=== PATIENT | female | born 1975 | race Caucasian/White ===

== ENCOUNTER → 2019-03-02 16:16 | Outpatient (CLI) | payer BC, SELFPAY ==
--- NOTE | 2019-03-02 | XR_ITS ---
PROCEDURE: XR KUB CLINICAL INDICATION: Bloody stool, abdominal cramping COMPARISON: ABDPELWO CT abdomen pelvis wo con from 08/17/2018 FINDINGS: Nonspecific bowel gas pattern. No evidence of intestinal obstruction. There are multiple small punctate foci of increased density within the ascending colon and cecum consistent with ingested material. This could be due to ingested medications or other ingested radiopaque material. Please correlate with clinical history. IMPRESSION: Multiple small hyperdensities in the ascending colon consistent with ingested material otherwise negative Dictated by: Pablo Lim MD 03/02/2019 17:14 Electronically signed by Pablo Lim MD in [place] 03/02/2019 17:14
== END ==
PROVIDERS: PCP Nurse Practitioner Family; Visit Provider Nurse Practitioner Family
DX: R10.30 Lower abdominal pain, unspecified (principal); K62.5 Hemorrhage of anus and rectum
CPT/HCPCS: 74018

== ENCOUNTER → 2019-05-15 14:06 | Outpatient (POV) | payer BC, SELFPAY | PROVIDERS: PCP Surgery; Visit Provider Nurse Practitioner Family | DX: Z00.00 Encounter for general adult medical examination without abnormal findings (principal) ==

== ENCOUNTER 2019-10-09 07:06 | Emergency (ER) | payer BC, SELFPAY ==
[2019-10-09 07:18] VITALS: BP 119/69; PULSE 62; RESP 16; TEMP 36.6; O2SAT 98; BMI 34.0
[2019-10-09 07:32] LABS: Appearance,Urine CLOUDY (Clear); Bilirubin,Urine Negative (Negative); Blood, Urine 3+ (Negative); Color,Urine DK YELLOW (Yellow); Glucose,Urine (UA) Negative (Negative); Ketones,Urine Negative (Negative); Leukocyte Esterase,Urine 2+ (Negative); Microscopic, Urine URINE MICROSCOPIC (MICROSCOPIC); Nitrate,Urine POSITIVE (Negative); Protein,Urine 2+ (Negative); Specific Gravity, Urine >= 1.030 (1.005-1.030)
[2019-10-09 07:41] LABS: Bacteria,Urine 3+ /lpf; RBC,Urine 20-50 #/hpf (0-3); WBC,Urine TNTC #/hpf (0-3)
--- NOTE | 2019-10-09 07:45 | HMH.EDUROGF ---
ED Disposition Clinical Impression: UTI (urinary tract infection) Qualifiers: Urinary tract infection type: site unspecified Hematuria presence: without hematuria Qualified Code(s): N39.0 - Urinary tract infection, site not specified Disposition: Home, Self-Care Condition on Discharge: Good Instructions: DI for Urinary Tract Infection (UTI) Additional Instructions: fluids and call pcp for follow up and culture results Prescriptions: levoFLOXacin [Levaquin 500mg tab] 500 mg PO DAILY #7 tab Transmission Status: Pending to [facility] Ketorolac Tromethamine [Toradol 10mg tablet] 10 mg PO Q6H 5 Days #10 tab Transmission Status: Pending to [facility] Referrals: Chris Enriquez MD [Primary Care Provider] - - Critical Care Critical Care Time: No Attestation: On 10/09/19, the high probability of a clinically significant, sudden or life threatening deterioration of the following system(s) required my full and direct attention, intervention and personal management. The time I documented below is in addition to time spent performing reported procedures but includes the following listed in this critical care notation. Medical Decision Making - Medical Records Medical records reviewed: Yes: I reviewed the patient's medical records. - Jag Inquiry Pt receiving controlled substance: No Vital Signs: 10/09/19 07:18 Temperature 98 F Temperature Source Oral Pulse Rate [Left Radial] 62 Respiratory Rate 16 Blood Pressure [Right Arm] 119/69 Blood Pressure Mean [Right Arm] 85 Blood Pressure Position [Right Arm] Sitting 02 Sat by Pulse Oximetry 98 Oxygen Delivery Method Room Air - Lab Data Lab results reviewed: Yes: I reviewed the patient's lab results. Lab Results 10/09/19 07:10: Urine Color Dk yellow, Urine Appearance Cloudy, Urine pH 6.0, Ur Specific [place] >= 1.030, Urine Protein 2+, Urine Glucose (UA) Negative, Urine Ketones Negative, Urine Blood 3+, Urine Nitrate Positive, Urine Bilirubin Negative, Urine Urobilinogen 1.0, Ur Leukocyte Esterase 2+ A, Urine RBC 20-50, Urine WBC Tntc, Ur Squamous Epith Cells 10-20, Urine Bacteria 3+ Orders (Tests/Meds): ORDERS Category Date Time Status CBC w/Auto Diff [Complete Blood Count Auto Diff] Stat Lab 10/09/19 07:30 Received CMP [Comprehensive Metabolic Panel] Stat Lab 10/09/19 07:30 Received Urine Culture Stat Micro 10/09/19 07:10 Received Female Urogenital HPI - General Chief complaint: Abdominal Pain Stated complaint: stomach pain, burning sensation Time Seen by Provider: 10/09/19 07:35 Mode of Arrival: Ambulatory Source of Information: Patient, Medical Record Limitations: No Limitations Description of Symptoms (Recalled from ER Triage Doc. by RN): to ed per pvt car with c/o burning with urination, lower abd pain +nausea starting wednesday. pt states she has been treating herself with azo and some left over amox. has taken motrin at 4:30 this am - History of Present Illness HPI Narrative: uti sx with freq and dysuria over the last few days - has no gross hematuria - no fever or vomiting - had used amox at home - MD Complaint: dysuria Onset (ago): day(s) Location: suprapubic Severity: moderate Urinary Symptoms: dysuria, frequency, foul smelling urine : no Associated symptoms: denies other symptoms - Related Data Previous Rx's Medication Instructions Recorded Ketorolac Tromethamine [Toradol 10 mg PO Q6H 5 Days #10 tab 10/09/19 10mg tablet] levoFLOXacin [Levaquin 500mg 500 mg PO DAILY #7 tab 10/09/19 tab] Allergies Allergy/AdvReac Type Severity Reaction Status Date / Time No Known Allergies Allergy Verified 06/30/19 10:17 [facility] History - Hepatitis A Screen Drug use history?: No High risk sexual behaviors?: No History of sexually transmitted infection?: No Currently employed?: No Childcare worker?: No Do you have indoor plumbing?: Yes Do you have electricity?: Yes At
[2019-10-09 08:03] VITALS: BP 119/69; PULSE 62; RESP 16; TEMP 36.6; O2SAT 98
== END 2019-10-09 08:04 | disposition home or self-care (01) ==
PROVIDERS: Emergency Provider Emergency Medicine; PCP Family Medicine
DX: N30.00 Acute cystitis without hematuria (principal); F17.210 Nicotine dependence, cigarettes, uncomplicated
CPT/HCPCS: 81001; 87086; 87088; 87186; 96372; 99282

== ENCOUNTER → 2020-02-07 15:19 | Outpatient (CLI) | payer BC, SELFPAY ==
--- NOTE | 2020-02-07 15:22 | XR_ITS ---
PROCEDURE: XR FOOT LT MIN 3V CLINICAL INDICATION: L FOOT PAIN COMPARISON: No exams were available for comparison FINDINGS: No fracture or dislocation. No lytic or blastic change. There is normal mineralization. The joint spaces are well-preserved. No significant degenerative/arthritic changes. No erosive changes evident. Other findings:There is a small calcaneal spur and there is an enthesophyte at the Achilles insertion. Small osteophyte is present at the anterior distal tibia IMPRESSION: No acute findings. Dictated by: Pablo Lim MD 02/07/2020 15:49 Pablo Lim MD in [place] 02/07/2020 15:49
== END ==
PROVIDERS: PCP Nurse Practitioner Family; Visit Provider Nurse Practitioner Family
DX: M79.672 Pain in left foot (principal)
CPT/HCPCS: 73630

== ENCOUNTER 2020-06-25 07:24 | Emergency (ER) | payer BC, SELFPAY ==
[2020-06-25 07:24] VITALS: BP 130/71; PULSE 84; RESP 15; TEMP 37; O2SAT 97; BMI 33.9
--- NOTE | 2020-06-25 07:25 | ECG_ITS ---
APPROVED REPORT Exam: Resting ECG HR:77 bpm ECG Measurements Heart Rate 77 AXES ME 142 P 50 QRSd 96 QRS 51 QT 384 T 54 QTc 434 Conclusion Normal sinus rhythm Low voltage QRS Borderline ECG Electronically signed by : Chris Logan, 06/25/2020 19:57:13
--- NOTE | 2020-06-25 07:33 | XR_ITS ---
PROCEDURE: XR CHEST PORTABLE CLINICAL HISTORY: chest pain COMPARISON: CR CXR2V XR chest 2V from 12/24/2017 FINDINGS: The cardiomediastinal silhouette and pulmonary vascularity are within normal limits. The lungs are clear without infiltrates, suspicious nodules, or pleural effusions. No acute bony abnormalities. IMPRESSION: No acute findings. Dictated by: Pablo Lim MD 06/25/2020 09:17 Pablo Lim MD in [place] 06/25/2020 09:17
--- NOTE | 2020-06-25 07:35 | HMH.EDGENADL ---
ED Disposition Clinical Impression: Atypical chest pain Disposition: Home, Self-Care Condition on Discharge: Fair Instructions: DI for Atypical Chest Pain Prescriptions: Ibuprofen [Ibuprofen 600mg Tablet] 600 mg PO Q8 #30 tab Transmission Status: Pending to [facility] Referrals: Chris Enriquez MD [Primary Care Provider] - Issa Del Toro MD [Staff Physician] - Time of Disposition: 10:31 - Critical Care Critical Care Time: No Attestation: On , the high probability of a clinically significant, sudden or life threatening deterioration of the following system(s) required my full and direct attention, intervention and personal management. The time I documented below is in addition to time spent performing reported procedures but includes the following listed in this critical care notation. Medical Decision Making - Medical Records Medical records reviewed: Yes: I reviewed the patient's medical records. - Jag Inquiry Pt receiving controlled substance: No Vital Signs: 06/25/20 07:24 06/25/20 07:55 06/25/20 08:59 Temperature 98.6 F Temperature Source Oral Pulse Rate [Left Radial] 84 60 57 L Respiratory Rate 15 Blood Pressure [Right Arm] 130/71 105/68 L 100/60 L Blood Pressure Mean [Right Arm] 90 80 73 Blood Pressure Source [Right Arm] Automatic Cuff Automatic Cuff Automatic Cuff Blood Pressure Position [Right Arm] Sitting Sitting Sitting 02 Sat by Pulse Oximetry 97 96 97 Oxygen Delivery Method Room Air Room Air Room Air 06/25/20 09:37 Temperature Temperature Source Pulse Rate [Left Radial] 54 L Respiratory Rate Blood Pressure [Right Arm] 102/61 L Blood Pressure Mean [Right Arm] 74 Blood Pressure Source [Right Arm] Automatic Cuff Blood Pressure Position [Right Arm] Sitting 02 Sat by Pulse Oximetry 97 Oxygen Delivery Method Room Air - Lab Data Lab Results 06/25/20 07:40: WBC 6.0, RBC 4.52, Hgb 13.6, Hct 41.0, MCV 90.7, MCH 30.1, MCHC 33.2, RDW 13.9, Plt Count 320, MPV 7.4, Neut % (Auto) 55.3, Lymph % (Auto) 34.3, [place] % (Auto) 7.2, Eos % (Auto) 2.7, Baso % (Auto) 0.4, Neut # (Auto) 3.3, Lymph # (Auto) 2.1, [place] # (Auto) 0.4, Eos # (Auto) 0.2, Baso # (Auto) 0.0 06/25/20 07:40: Sodium 139, Potassium 3.9, Chloride 102, Carbon Dioxide 28, Anion Gap 12.9, BUN 15, Creatinine 0.70, Estimated Creat Clear 153, Estimated GFR 90, Est GFR ( Amer) 109, Glucose 103 H, Calcium 9.4, Troponin I < 0.01 06/25/20 07:40: D-Dimer 0.81 06/25/20 07:40: SARS-CoV-2 IgG Ab (Rapid) Negative, SARS-CoV-2 IgM Ab (Rapid) Negative 06/25/20 10:35: Troponin I < 0.01 Result diagrams: 06/25/20 07:40 06/25/20 07:40 Orders (Tests/Meds): ED MEDICATIONS Discontinued Medications Generic Name Dose Route Start Last Admin Trade Name Freq PRN Reason Stop Dose Admin Aspirin 324 mg 06/25/20 07:33 06/25/20 07:46 Aspirin 81mg Chewable Tablet PO 06/25/20 07:34 324 mg ONCE ONE Administration Iopamidol 75 ml 06/25/20 09:51 06/25/20 09:55 Iopamidol-370 (76%);100ml Bottle IV 06/25/20 09:52 75 ml ONCE ONE Administration Sodium Chloride 10 ml 06/25/20 09:51 06/25/20 09:55 Sodium Chloride 0.9% 10ml Syr (Rad Only) IV 06/25/20 09:52 10 ml ONCE ONE Administration ORDERS Category Date Time Status Troponin I Q3H Lab 06/25/20 13:45 Ordered EKG Request [ECG Request by /Rosie] Stat Y 06/25/20 07:33 Ordered - ECG Data Tracing #1 Sinus rhythm with ventricular rate of 77 bpm. QRS 96, QTc 434. ST segment flattening in V1, V2. No ST segment elevations. No reciprocal changes. - ANNA Score for Non-Stemi Age of Patient: 40-49 years old Heart Rate: 70-89 bpm Systolic Blood Pressure: 120-139 mmhg Serum Creatinine: 0.80-1.19 mg/dl CHF [place] Class: I-No CHF Other Risk Factors: None Non-Stemi Risk Score: 75 Medical Decision Narrative: 44-year-old female presenting to the emergency department with chest pain. Patient clinically stable on arrival. Vital si
--- NOTE | 2020-06-25 07:44 | PC.NURSE ---
rad at BS
[2020-06-25 07:55] VITALS: BP 105/68; PULSE 60; O2SAT 96
[2020-06-25 08:06] LABS: Basophils % 0.4 % (0.1-2.0); Eosinophils # 0.2 K/mm3 (0.0-0.4); Eosinophils % 2.7 % (0.1-12.0); Hemoglobin 13.6 g/dL (12.2-16.2); Lymphocytes # 2.1 K/mm3 (0.7-4.5); Lymphocytes % 34.3 % (10-50); Mean Corpuscular HGB Conc 33.2 g/dL (31.8-35.4); Mean Corpuscular Hemoglobin 30.1 pg (27.0-31.2); Mean Corpuscular Volume 90.7 fl (81-99); Mean Platelet Volume 7.4 fl (7.4-10.4); Monocytes # 0.4 K/mm3 (0.1-1.0); Monocytes % 7.2 % (1.7-9.3); Neutrophils # 3.3 K/mm3 (1.8-7.8); Neutrophils % 55.3 % (37.0-80.0); Platelet Count 320 K/mm3 (142-424); Red Blood Count 4.52 M/mm3 (4.20-5.40); Red Cell Distribution Width 13.9 % (11.5-17.5)
[2020-06-25 08:30] LABS: Coronavirus 19 IgG Antibody Negative (Negative); Coronavirus 19 IgM Antibody Negative (Negative)
[2020-06-25 08:36] LABS: Anion Gap 12.9 mEq/L (5-15); Blood Urea Nitrogen 15 mg/dl (7-17); Calcium 9.4 mg/dl (8.4-10.2); Carbon Dioxide 28 mmol/L (22.0-30.0); Chloride 102 mmol/L (98-107); Creatinine Clearance Estimated 153 mL/min (50-200); Estimated Glomerular Filt Rate 90 ml/min (>60); GFR (African American) 109 ML/MIN (>60); Glucose 103 mg/dl (74-100); Potassium 3.9 mmoL/L (3.5-5.1); Sodium 139 mmol/L (136-145)
[2020-06-25 08:41] LABS: D-Dimer 0.81 ug/mL (0.15-8.0)
[2020-06-25 08:52] LABS: Troponin I < 0.01 ng/ml (0.00-0.034)
[2020-06-25 08:59] VITALS: BP 100/60; PULSE 57; O2SAT 97
--- NOTE | 2020-06-25 09:33 | CT_ITS ---
PROCEDURE: CT CHEST W CON CLINCAL INDICATION: chest pain, into back, aorta COMPARISON: CR XR CHEST PORTABLE from 06/25/2020 TECHNIQUE: IV Contrast: 75ml Isovue 370 Axial images obtained with sagittal and coronal reformats. All CT scans at the facility use one or more dose reduction, viz: automated exposure control, ma/kV adjustment per patient size (including targeted exams where dose is matched to indication, i.e. head), or iterative reconstruction technique. FINDINGS: Motion artifact somewhat obscures fine detail. There is no evidence of aortic aneurysm or dissection. No central pulmonary embolus apparent. No mediastinal or hilar mass or adenopathy. No lobar consolidation or collapse. No effusions or infiltrates. There are degenerative changes in the thoracic spine. IMPRESSION: No acute finding Dictated by: Pablo Lim MD 06/25/2020 10:13 Pablo Lim MD in [place] 06/25/2020 10:13
[2020-06-25 09:37] VITALS: BP 102/61; PULSE 54; O2SAT 97
[2020-06-25 11:09] LABS: Troponin I < 0.01 ng/ml (0.00-0.034)
[2020-06-25 11:24] VITALS: BP 105/57; PULSE 56; RESP 17; TEMP 37; O2SAT 99
== END 2020-06-25 11:25 | disposition home or self-care (01) ==
PROVIDERS: Emergency Provider Emergency Medicine; PCP Family Medicine
DX: R07.89 Other chest pain (principal); F41.8 Other specified anxiety disorders; J45.909 Unspecified asthma, uncomplicated; Z01.84 Encounter for antibody response examination; F17.210 Nicotine dependence, cigarettes, uncomplicated; Z79.899 Other long term (current) drug therapy
CPT/HCPCS: 71045; 71260; 80048; 84484; 85025; 85378; 86328; 93005; 99283; Q9967

== ENCOUNTER 2020-10-03 14:20 | Emergency (ER) | payer BC, SELFPAY ==
--- NOTE | 2020-10-03 14:58 | PC.NURSE ---
PATIENT FILLED OUT PAPERWORK AND THEN STEPPED OUT AND JUST RETURNED TO BE SEEN
[2020-10-03 15:06] VITALS: RESP 14; TEMP 37.1; O2SAT 98; BMI 32.9
[2020-10-03 15:13] LABS: Apearance,Urine Clear (Clear); Bilirubin,Urine Negative (Negative); Blood, Urine Trace (Negative); Color,Urine Amber (Yellow); Glucose,Urine (UA) Negative (Negative); Ketones,Urine Negative (Negative); PH,Urine 5.5 (5.0-8.5); Protein,Urine Negative (Negative); Specific Gravity, Urine >= 1.030 (1.005-1.030)
[2020-10-03 15:14] LABS: UTC Leukocyte Esterase,Urine Negative (Negative); UTC Nitrate,Urine Negative (Negative); Urobilinogen,Urine 2 EU/dl (0.2)
--- NOTE | 2020-10-03 15:21 | HMH.EDUTC ---
[facility] Disposition Clinical Impression: Perforated right tympanic membrane on examination, Dysuria Right middle ear infection Qualifiers: Otitis media type: unspecified Qualified Code(s): H66.91 - Otitis media, unspecified, right ear Disposition: Home, Self-Care Condition on Discharge: Good Instructions: Middle Ear Infection, DI for Dysuria -- Adult Additional Instructions: Drink plenty of fluids. Take tylenol or ibuprofen for pain or fever. Take the medications as directed. Follow up with your regular doctor. GO TO THE ER FOR ANY WORSENING SYMPTOMS We sent a urine culture to the lab to verify if you have a UTI or not. This test takes 3 days, so if you are still having the urinary symptoms in 3 days f/u with your doctor to have the results checked. Prescriptions: Amoxicillin/Potassium Clav [Augmentin 875-125 Tablet] 1 tab PO Q12H 10 Days #20 tab Transmission Status: Received by [facility] Ciprofloxacin HCl/Dexameth [Cipro 0.3%-Dex 0.1% Otic Susp 7.5mL] 2 drops EAR-LEFT BID 7 Days #1 bottle Transmission Status: [email or web address] predniSONE [Prednisone 20mg Tab] 20 mg PO BID 4 Days #8 tab Transmission Status: Received by [facility] Referrals: Chris Enriquez MD [Primary Care Provider] - Forms: Work/School Release Time of Disposition: 15:27 Medical Decision Making - Medical Records Medical records reviewed: No: I reviewed the patient's medical records. - Jag Inquiry Pt receiving controlled substance: No Vital Signs: 10/03/20 15:06 10/03/20 15:31 Temperature 98.7 F 98.0 F Temperature Source Oral Oral Pulse Rate 60 Respiratory Rate 14 16 Blood Pressure 107/54 L 02 Sat by Pulse Oximetry 98 Oxygen Delivery Method Room Air Room Air - Lab Data Lab Results 10/03/20 15:12: Urine Color Sharlene, Urine Appearance Clear, Urine pH 5.5, Ur Specific [place] >= 1.030, Urine Protein Negative, Urine Glucose (UA) Negative, Urine Ketones Negative, Urine Blood Trace, Urine Nitrate Negative, Urine Bilirubin Negative, Urine Urobilinogen 2, Ur Leukocyte Esterase Negative Orders (Tests/Meds): ORDERS Category Date Time Status Urine Culture Routine Micro 10/03/20 15:30 Received [facility] HPI - General Stated complaint: Drainage; right ear draining;UTI Time Seen by Provider: 10/03/20 15:15 Mode of Arrival: Ambulatory Source of Information: Patient Limitations: No Limitations Description of Symptoms (Recalled from Triage Doc. by RN): earache, sinus pressure, headache, frequent urination HEENT Symptoms (Recalled from RN notes): Yes Resp Symptoms (Recalled from RN notes): No Skin Symptoms (Recalled from RN notes): No MS Symptoms (Recalled from RN notes): No Functional Status (Recalled from RN notes): na - History of Present Illness Provider Complaint: She c/o right ear pain for the past 3 days. She has a history of getting an ear infection every spring. She also c/o urinary frequency and low back pain. - Related Data Home Medications Medication Instructions Recorded Confirmed estradiol 1 mg tablet 1 mg PO DAILY tab 03/19/20 09/05/20 progesterone micronized 200 mg 200 mg PO DAILY cap 03/19/20 09/05/20 capsule sertraline 50 mg tablet 50 mg PO DAILY tab 03/19/20 09/05/20 Previous Rx's Medication Instructions Recorded Ibuprofen [Ibuprofen 600mg 600 mg PO Q8 #30 tab 06/25/20 Tablet] Amoxicillin/Potassium Clav 1 tab PO Q12H 10 Days #20 tab 10/03/20 [Augmentin 875-125 Tablet] Ciprofloxacin HCl/Dexameth [Cipro 2 drops EAR-LEFT BID 7 Days #1 10/03/20 0.3%-Dex 0.1% Otic Susp 7.5mL] bottle predniSONE [Prednisone 20mg 20 mg PO BID 4 Days #8 tab 10/03/20 Tab] Allergies Allergy/AdvReac Type Severity Reaction Status Date / Time No Known Allergies Allergy Verified 09/05/20 14:30 - Worker's Comp Is this a Worker's Comp case?: No [facility] History - Hepatitis A Screen Drug use history?: No High risk sexual behaviors?
[2020-10-03 15:31] VITALS: BP 107/54; PULSE 60; RESP 16; TEMP 36.7; O2SAT 98
== END 2020-10-03 15:36 | disposition home or self-care (01) ==
PROVIDERS: Emergency Provider Nurse Practitioner Family; PCP Family Medicine
DX: H72.91 Unspecified perforation of tympanic membrane, right ear (principal); H66.91 Otitis media, unspecified, right ear; N39.0 Urinary tract infection, site not specified; F41.9 Anxiety disorder, unspecified; J45.909 Unspecified asthma, uncomplicated; F17.210 Nicotine dependence, cigarettes, uncomplicated
CPT/HCPCS: 81003; 87086; 99202; G0463

== ENCOUNTER 2021-03-21 20:18 | Emergency (ER) | payer BC, SELFPAY ==
--- NOTE | 2021-03-21 20:12 | ECG_ITS ---
APPROVED REPORT Exam: Resting ECG HR:112 bpm ECG Measurements Heart Rate 112 AXES [place] 144 P 54 QRSd 90 QRS 53 QT 358 T 36 QTc 488 Conclusion Sinus tachycardia Otherwise normal ECG Electronically signed by : Chris Logan MD 03/22/2021 12:47:21
[2021-03-21 20:18] VITALS: BP 132/82; PULSE 101; RESP 25; TEMP 36.6; O2SAT 100; BMI 33.9
--- NOTE | 2021-03-21 20:38 | XR_ITS ---
PROCEDURE INFORMATION: Exam: XR Chest Exam date and time: 03/21/21 08:38 PM Age: 45 years old Clinical indication: Shortness of breath; Additional info: oRme SOSukhi TECHNIQUE: Imaging protocol: XR of the chest. Views: 2 views. COMPARISON: CT CHEST W CON 06/25/20 09:49 AM FINDINGS: Lungs: Patchy left lower lobe infiltrate. Pleural spaces: Unremarkable. No pleural effusion. No pneumothorax. Heart/Mediastinum: Unremarkable. No cardiomegaly. Bones/joints: Unremarkable. IMPRESSION: Patchy left lower lobe infiltrate.
--- NOTE | 2021-03-21 20:42 | HMH.EDCP ---
ED Disposition Clinical Impression: Chest pain Qualifiers: Chest pain type: unspecified Qualified Code(s): R07.9 - Chest pain, unspecified Disposition: Home, Self-Care Condition on Discharge: Good Instructions: DI for Atypical Chest Pain Additional Instructions: see pcp and card for follow up Referrals: Chris Enriquez MD [Primary Care Provider] - - Critical Care Critical Care Time: No Attestation: On 03/21/21, the high probability of a clinically significant, sudden or life threatening deterioration of the following system(s) required my full and direct attention, intervention and personal management. The time I documented below is in addition to time spent performing reported procedures but includes the following listed in this critical care notation. Medical Decision Making - Medical Records Medical records reviewed: Yes: I reviewed the patient's medical records. - Jag Inquiry Pt receiving controlled substance: No Vital Signs: 03/21/21 20:18 Temperature 97.9 F Temperature Source Oral Pulse Rate [Right] 101 H Respiratory Rate 25 H Blood Pressure [Right Arm] 132/82 Blood Pressure Mean [Right Arm] 98 Blood Pressure Source [Right Arm] Automatic Cuff 02 Sat by Pulse Oximetry 100 Oxygen Delivery Method Room Air - Lab Data Lab results reviewed: Yes: I reviewed the patient's lab results. Lab Results 03/21/21 20:30: WBC 7.2, RBC 4.16 L, Hgb 13.0, Hct 38.6, MCV 92.8, MCH 31.1, MCHC 33.5, RDW 13.1, Plt Count 353, MPV 8.6, Neut % (Auto) 65.4, Lymph % (Auto) 27.7, [place] % (Auto) 5.2, Eos % (Auto) 0.8, Baso % (Auto) 0.7, Neut # (Auto) 4.7, Lymph # (Auto) 2.0, [place] # (Auto) 0.4, Eos # (Auto) 0.1, Baso # (Auto) 0.1 03/21/21 20:30: Sodium 140, Potassium 3.6, Chloride 109 H, Carbon Dioxide 23, Anion Gap 11.6, BUN 12, Creatinine 0.70, Estimated Creat Clear 151, Estimated GFR 90, Est GFR ( Amer) 109, Glucose 108 H, Calcium 9.3, Magnesium 2.1, Total Bilirubin 0.2, Direct Bilirubin 0.0, Conjugated Bilirubin 0.0, Indirect Bilirubin 0.2, Unconjugated Bilirubin 0.2, AST 25, ALT 22, Alkaline Phosphatase 53, Troponin I < 0.01, C-Reactive Protein 1.6, Total Protein 7.1, Albumin 4.3 03/21/21 20:30: ESR 17 03/21/21 20:30: Procalcitonin < 0.030 03/21/21 20:41: SARS-CoV-2 (PCR) Not detected, Influenza A Untype (PCR) Not detected, Influenza Type B (PCR) Not detected 03/21/21 21:29: Urine Color Yellow, Urine Appearance Clear, Urine pH 6.5, Ur Specific [place] 1.020, Urine Protein Negative, Urine Glucose (UA) Negative, Urine Ketones Negative, Urine Blood Negative, Urine Nitrate Negative, Urine Bilirubin Negative, Urine Urobilinogen 0.2, Ur Leukocyte Esterase Negative, Urine WBC 3-5, Ur Squamous Epith Cells 5-10, Urine Mucus Trace 03/21/21 22:39: Troponin I < 0.01 Result diagrams: 03/21/21 20:30 03/21/21 20:30 Orders (Tests/Meds): ED MEDICATIONS Generic Name Dose Route Start Last Admin Trade Name Freq PRN Reason Stop Dose Admin Sodium Chloride 8 ml 03/21/21 20:41 Sodium Chloride 0.9% 10ml Vial IV 04/20/21 20:40 NEEDED PRN dilute pepcid Discontinued Medications Generic Name Dose Route Start Last Admin Trade Name Freq PRN Reason Stop Dose Admin Famotidine 20 mg 03/21/21 20:41 03/21/21 20:58 Famotidine 20mg/2ml Vial IV 03/21/21 20:42 20 mg ONCE ONE Administration Sodium Chloride 1,000 mls @ 999 mls/hr 03/21/21 20:45 03/21/21 20:59 Sod Chlor 0.9% 1000ml Bag IV 03/21/21 21:45 999 mls/hr .Q1H1M NAV Administration Iopamidol 70 ml 03/21/21 23:17 03/21/21 23:18 Iopamidol-370 (76%);100ml Bottle IV 03/21/21 23:18 70 ml ONCE ONE Administration Ketorolac Tromethamine 30 mg 03/21/21 20:41 03/21/21 20:58 Ketorolac 30mg/Ml Vial IV 03/21/21 20:42 30 mg ONCE ONE Administration Metoclopramide HCl 10 mg 03/21/21 20:41 03/21/21 20:58 Metoclopramide Hcl 10mg/2ml Vial IVP 03/21/21 20:42 10 mg ONCE ONE Administration Ondansetron HCl 4 mg 03/21/21 20:41 1
[2021-03-21 20:54] LABS: Basophils # 0.1 K/mm3 (0-0.2); Basophils % 0.7 % (0.1-2.0); Eosinophils # 0.1 K/mm3 (0.0-0.4); Eosinophils % 0.8 % (0.1-12.0); Hematocrit 38.6 % (37.0-47.0); Lymphocytes % 27.7 % (10-50); Mean Corpuscular HGB Conc 33.5 g/dL (31.8-35.4); Mean Corpuscular Hemoglobin 31.1 pg (27.0-31.2); Mean Corpuscular Volume 92.8 fl (81-99); Mean Platelet Volume 8.6 fl (7.4-10.4); Monocytes # 0.4 K/mm3 (0.1-1.0); Monocytes % 5.2 % (1.7-9.3); Neutrophils # 4.7 K/mm3 (1.8-7.8); Neutrophils % 65.4 % (37.0-80.0); Platelet Count 353 K/mm3 (142-424); Red Blood Count 4.16 M/mm3 (4.20-5.40); Red Cell Distribution Width 13.1 % (11.5-17.5); White Blood Count 7.2 K/mm3 (4.8-10.8)
[2021-03-21 20:59] LABS: Coronavirus 19, PCR Not Detected (NotDetected); Influenza A, PCR Not Detected (NotDetected); Influenza B, PCR Not Detected (NotDetected)
[2021-03-21 20:59] LABS: Alanine Aminotransferase 22 U/L (12-78); Albumin Level 4.3 g/dl (3.5-5.0); Alkaline Phosphatase 53 U/L (38-126); Anion Gap 11.6 mEq/L (5-15); Aspartate Amino Transferase 25 U/L (14-36); Bilirubin,Indirect 0.2 mg/dL (0.0-0.9); Bilirubin,Total 0.2 mg/dl (0.2-1.3); Bilirubin,Unconjugated 0.2 mg/dL (0.0-1.1); Blood Urea Nitrogen 12 mg/dl (7-17); Calcium 9.3 mg/dl (8.4-10.2); Carbon Dioxide 23 mmol/L (22.0-30.0); Chloride 109 mmol/L (98-107); Creatinine Clearance Estimated 151 mL/min (50-200); Estimated Glomerular Filt Rate 90 ml/min (>60); GFR (African American) 109 ML/MIN (>60); Glucose 108 mg/dl (74-100); Magnesium 2.1 mg/dl (1.6-2.3); Potassium 3.6 mmoL/L (3.5-5.1); Sodium 140 mmol/L (136-145); Total Protein,Serum 7.1 g/dl (6.3-8.2)
[2021-03-21 21:04] LABS: C-Reactive Protein 1.6 mg/L (0-4)
[2021-03-21 21:16] LABS: Troponin I < 0.01 ng/ml (0.00-0.034)
[2021-03-21 21:22] LABS: Procalcitonin < 0.030 ng/mL (0.0-2.0)
[2021-03-21 21:34] LABS: Microscopic, Urine URINE MICROSCOPIC (MICROSCOPIC)
[2021-03-21 21:49] LABS: Erythrocyte Sedimentation Rate 17 mm/hr (0-20)
[2021-03-21 21:54] LABS: Appearance,Urine CLEAR (Clear); Bilirubin,Urine Negative (Negative); Blood, Urine Negative (Negative); Color,Urine YELLOW (Yellow); Glucose,Urine (UA) Negative (Negative); Ketones,Urine Negative (Negative); Leukocyte Esterase,Urine Negative (Negative); Nitrate,Urine Negative (Negative); PH,Urine 6.5 (5.0-8.5); Protein,Urine Negative (Negative); Urobilinogen,Urine 0.2 EU/dl (0.2)
[2021-03-21 22:02] LABS: Mucus,Urine Trace /lpf
--- NOTE | 2021-03-21 22:48 | CT_ITS ---
PROCEDURE INFORMATION: Exam: CTA Chest With Contrast Exam date and time: 03/21/21 10:48 PM Age: 45 years old Clinical indication: Shortness of breath; Additional info: Abd cxr infiltrates SOB TECHNIQUE: Imaging protocol: Computed tomographic angiography of the chest with contrast. 3D rendering (Not supervised by radiologist): MIP and/or 3D reconstructed images were created by the technologist. Radiation optimization: All CT scans at this facility use at least one of these dose optimization techniques: automated exposure control; mA and/or kV adjustment per patient size (includes targeted exams where dose is matched to clinical indication); or iterative reconstruction. Contrast material: ISOVUE 370; Contrast volume: 70 ml; Contrast route: INTRAVENOUS (IV); COMPARISON: CT CHEST W CON 06/25/20 09:49 AM FINDINGS: Pulmonary arteries: No CT evidence of pulmonary embolus. Aorta: Unremarkable. No aortic aneurysm. No aortic dissection. Lungs: Patchy left lower lobe infiltrate seen on plain film has resolved. Pleural spaces: Unremarkable. No pneumothorax. No pleural effusion. Heart: Unremarkable. No cardiomegaly. No pericardial effusion. Lymph nodes: Unremarkable. No enlarged lymph nodes. Bones/joints: Unremarkable. No acute fracture. Soft tissues: Unremarkable. IMPRESSION: 1. Patchy left lower lobe infiltrate seen on plain film has resolved. 2. No CT evidence of pulmonary embolus.
[2021-03-21 23:09] LABS: Troponin I < 0.01 ng/ml (0.00-0.034)
[2021-03-22 01:31] VITALS: BP 127/82; PULSE 90; RESP 16; TEMP 36.6; O2SAT 100
== END 2021-03-22 01:32 | disposition home or self-care (01) ==
PROVIDERS: Emergency Provider Emergency Medicine; PCP Family Medicine
DX: R07.9 Chest pain, unspecified (principal); Z20.822 Contact with and (suspected) exposure to COVID-19; F41.9 Anxiety disorder, unspecified; J45.909 Unspecified asthma, uncomplicated; F17.210 Nicotine dependence, cigarettes, uncomplicated
CPT/HCPCS: 71046; 71275; 80048; 80076; 81001; 83735; 84145; 84484; 85025; 85651; 86140; 93005; 93225; 93226; 93270; 96365; 96375; 99283; C9803; J2405; Q9967; U0003; U0005

== ENCOUNTER → 2021-06-23 12:27 | Outpatient (CLI) | payer BC, SELFPAY | PROVIDERS: PCP Family Medicine; Visit Provider Nurse Practitioner | DX: Z20.822 Contact with and (suspected) exposure to COVID-19 (principal) | CPT/HCPCS: C9803; U0003; U0005 ==

== ENCOUNTER 2021-10-20 11:50 | Emergency (ER) | payer BC, SELFPAY ==
--- NOTE | 2021-10-20 13:59 | HMH.EDUTC ---
[facility] [place] Disposition Clinical Impression: Bronchitis Sinusitis Qualifiers: Sinusitis location: unspecified location Chronicity: acute Recurrence: non-recurrent Qualified Code(s): J01.90 - Acute sinusitis, unspecified Disposition: Home, Self-Care Condition on Discharge: Good Instructions: DI for Sinusitis, DI for Acute Bronchitis Additional Instructions: Drink plenty of fluids. Take tylenol or ibuprofen for pain or fever. Take the medications as directed. Follow up with your regular doctor. GO TO THE ER FOR ANY WORSENING SYMPTOMS Prescriptions: Promethazine/Dextromethorphan [Promethazine-Dm Syrup] 5 ml PO Q6HP PRN #240 ml PRN Reason: Cough Transmission Status: Received by [id number] Fluconazole [Diflucan 150mg tab] 150 mg PO ONCE #1 tab [facility]: [facility] methylPREDNISolone [Medrol] 4 mg PO DIRECTED 6 Days #21 packet Transmission Status: Received by [facility] Azithromycin [Z-Rubén 250mg Tab*] 250 mg PO UD DOSE PK #6 tab Transmission Status: Received by [facility] Referrals: Sukhi Rees MD [Primary Care Provider] - Forms: Work/School Release Time of Disposition: 14:50 Medical Decision Making - Medical Records Medical records reviewed: No: I reviewed the patient's medical records. - Jag Inquiry Pt receiving controlled substance: No Vital Signs: 10/20/21 14:01 10/20/21 14:51 Temperature 98.0 F 98.0 F Temperature Source Oral Pulse Rate 69 Pulse Rate [Left] 69 Respiratory Rate 18 18 Blood Pressure 124/59 L Blood Pressure [Right Arm] 124/59 L Blood Pressure Mean [Right Arm] 80 02 Sat by Pulse Oximetry 98 - Lab Data Lab results reviewed: Yes: I reviewed the patient's lab results. Lab Results 10/20/21 13:54: Group A Strep Rapid Negative Orders (Tests/Meds): ORDERS Category Date Time Status Strep Screen Confirmation Stat Micro 10/20/21 13:54 Received [facility] [place] HPI - General Stated complaint: sinus pressure/congestion Time Seen by Provider: 10/20/21 13:59 - History of Present Illness Provider Complaint: She states that for the past 3 days she has had a sinus congestion, sore throat, and a cough. - Related Data Home Medications Medication Instructions Recorded Confirmed estradiol 1 mg tablet 1 mg PO DAILY tab 03/19/20 09/05/20 progesterone micronized 200 mg 200 mg PO DAILY cap 03/19/20 09/05/20 capsule sertraline 50 mg tablet 50 mg PO DAILY tab 03/19/20 09/05/20 Previous Rx's Medication Instructions Recorded Ibuprofen [Ibuprofen 600mg 600 mg PO Q8 #30 tab 06/25/20 Tablet] Amoxicillin/Potassium Clav 1 tab PO Q12H 10 Days #20 tab 10/03/20 [Augmentin 875-125 Tablet] Ciprofloxacin HCl/Dexameth [Cipro 2 drops EAR-LEFT BID 7 Days #1 10/03/20 0.3%-Dex 0.1% Otic Susp 7.5mL] bottle predniSONE [Prednisone 20mg 20 mg PO BID 4 Days #8 tab 10/03/20 Tab] Azithromycin [Z-Rubén 250mg Tab*] 250 mg PO UD DOSE PK #6 tab 10/20/21 Fluconazole [Diflucan 150mg tab] 150 mg PO ONCE #1 tab 10/20/21 Promethazine/Dextromethorphan 5 ml PO Q6HP PRN #240 ml 10/20/21 [Promethazine-Dm Syrup] methylPREDNISolone [Medrol] 4 mg PO DIRECTED 6 Days #21 10/20/21 packet Allergies Allergy/AdvReac Type Severity Reaction Status Date / Time No Known Allergies Allergy Verified 10/20/21 14:04 [facility] History - Hepatitis A Screen Attestation statement:: This patient has been screened for Hepatitis A risk factors. I have reviewed the patient's past medical history: Yes 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: Reports:: Anxiety, Asthma Denies:: Cancer, Diabetes Mellitus Type 1, Diabetes Mellitus Type 2, Internal Pacemaker, MRSA, Seizures Other Surgeries: Yes: Cholecystectomy, Colonoscopy, , Other. No: Pacemaker Amputation: No Fractures: Yes Comment: pin and metal plate in leg, Uterine ablasion - Social History Smoking Status: Current every day smoker Tobacco Type: cigarettes # Pa
[2021-10-20 14:01] VITALS: BP 124/59; PULSE 69; RESP 18; TEMP 36.7; O2SAT 98; BMI 33.4
[2021-10-20 14:14] LABS: Strep Scrn Group A (Rapid) Negative (Negative)
[2021-10-20 14:51] VITALS: BP 124/59; PULSE 69; RESP 18; TEMP 36.7
== END 2021-10-20 14:54 | disposition home or self-care (01) ==
PROVIDERS: Emergency Provider Nurse Practitioner Family; PCP Family Medicine
DX: J01.90 Acute sinusitis, unspecified (principal); J20.9 Acute bronchitis, unspecified; J45.909 Unspecified asthma, uncomplicated; F17.210 Nicotine dependence, cigarettes, uncomplicated
CPT/HCPCS: 87430; 99212; G0463

== ENCOUNTER 2022-01-19 20:44 | Emergency (ER) | payer BC, SELFPAY ==
[2022-01-19 20:46] VITALS: BP 116/59; PULSE 89; RESP 20; TEMP 36.8; O2SAT 100; BMI 34.2
--- NOTE | 2022-01-19 21:00 | XR_ITS ---
PROCEDURE INFORMATION: Exam: XR Chest Exam date and time: 01/19/2022 9:03 PM Age: 46 years old Clinical indication: Sternal or substernal pain; Additional info: Chest pain TECHNIQUE: Imaging protocol: Radiologic exam of the chest. Views: 2 views. COMPARISON: CR XR CHEST 2V 03/21/2021 8:49 PM FINDINGS: Lungs: Unremarkable. No consolidation. Pleural spaces: Unremarkable. No pleural effusion. No pneumothorax. Heart/Mediastinum: Unremarkable. No cardiomegaly. Bones/joints: Unremarkable. IMPRESSION: No acute cardiopulmonary abnormality.
--- NOTE | 2022-01-19 21:10 | ECG_ITS ---
APPROVED REPORT Exam: Resting ECG HR:61 bpm ECG Measurements Heart Rate 61 AXES IN 139 P 70 QRSd 104 QRS 74 QT 407 T 66 QTc 409 Conclusion SINUS RHYTHM WITH SINUS ARRHYTHMIA NORMAL ECG UNCONFIRMED REPORT Electronically signed by : Chris Logan MD 01/21/2022 21:05:21
--- NOTE | 2022-01-19 21:16 | HMH.EDGENADL ---
ED Disposition Clinical Impression: Chest pain Qualifiers: Chest pain type: unspecified Qualified Code(s): R07.9 - Chest pain, unspecified Disposition: Home, Self-Care Condition on Discharge: Good Instructions: DI for Chest Pain Additional Instructions: You have been evaluated for chest pain. Please follow-up with your primary care doctor in 1 to 2 days for symptom recheck. Return to the emergency department at once for any new or worsening symptoms, pain, shortness of breath, other concerns. Referrals: Sukhi Rees MD [Primary Care Provider] - Time of Disposition: :22 - Critical Care Critical Care Time: No Attestation: On 01/19/22, the high probability of a clinically significant, sudden or life threatening deterioration of the following system(s) required my full and direct attention, intervention and personal management. The time I documented below is in addition to time spent performing reported procedures but includes the following listed in this critical care notation. Medical Decision Making - Medical Records Medical records reviewed: Yes: I reviewed the patient's medical records. - Jag Inquiry Pt receiving controlled substance: No Vital Signs: 01/19/22 20:46 01/19/22 21:30 01/19/22 22:58 Temperature 98.3 F Temperature Source Oral Pulse Rate 52 L Pulse Rate [Right] 89 Respiratory Rate 20 Blood Pressure 111/61 Blood Pressure [Right Arm] 116/59 L Blood Pressure Mean 78 Blood Pressure Mean [Right Arm] 78 Blood Pressure Source [Right Arm] Automatic Cuff 02 Sat by Pulse Oximetry 100 99 Oxygen Delivery Method Room Air 01/20/22 00:39 Temperature 98.0 F Temperature Source Pulse Rate 62 Pulse Rate [Right] Respiratory Rate 19 Blood Pressure 124/79 Blood Pressure [Right Arm] Blood Pressure Mean Blood Pressure Mean [Right Arm] Blood Pressure Source [Right Arm] 02 Sat by Pulse Oximetry Oxygen Delivery Method Room Air - Lab Data Lab Results 01/19/22 21:19: WBC 7.6, RBC 4.15 L, Hgb 12.9, Hct 39.6, MCV 95.5, MCH 31.0, MCHC 32.5, RDW 12.9, Plt Count 347, MPV 8.2, Neut % (Auto) 53.2, Lymph % (Auto) 36.4, [place] % (Auto) 6.6, Eos % (Auto) 2.6, Baso % (Auto) 1.2, Neut # (Auto) 4.0, Lymph # (Auto) 2.8, [place] # (Auto) 0.5, Eos # (Auto) 0.2, Baso # (Auto) 0.1 01/19/22 21:19: Sodium 140, Potassium 4.2, Chloride 106, Carbon Dioxide 29, Anion Gap 9.2, BUN 17, Creatinine 0.70, Estimated Creat Clear 151, Estimated GFR 90, Est GFR ( Amer) 109, Glucose 94, Calcium 9.5, Total Bilirubin < 0.1 L, AST 27, ALT 21, Alkaline Phosphatase 65, Troponin I < 0.01, Total Protein 7.2, Albumin 4.3, Globulin 2.9, Albumin/Globulin Ratio 1.5 01/19/22 21:19: D-Dimer 0.65 H 01/19/22 21:49: SARS-CoV-2 (PCR) Not detected, Influenza A Untype (PCR) Not detected, Influenza Type B (PCR) Not detected 01/19/22 23:20: Troponin I < 0.01 Result diagrams: 01/19/22 21:19 01/19/22 21:19 Orders (Tests/Meds): ED MEDICATIONS Discontinued Medications Generic Name Dose Route Start Last Admin Trade Name Freq PRN Reason Stop Dose Admin Aspirin 325 mg 01/19/22 21:00 01/19/22 21:07 Aspirin 325mg Tablet PO 01/19/22 21:01 325 mg ONCE ONE Administration - ECG Data Tracing #1 Sinus rhythm with ventricular rate of 61 beats minute. QRS 104, QTc 409. Sinus arrhythmia present. No ST segment elevation. No arrhythmia. - ANNA Score for Non-Stemi Age of Patient: 40-49 years old Heart Rate: 70-89 bpm Systolic Blood Pressure: 100-119 mmHg Serum Creatinine: 0.40-0.79 mg/dl CHF [place] Class: I-No CHF Other Risk Factors: None Non-Stemi Risk Score: 81 Medical Decision Narrative: In summary this is a 46-year-old female with history of tobacco use disorder and anxiety presenting to the emergency department with back pain, chest pain. Patient clinically stable on arrival. Vital signs within normal limits. Will obtain CBC, CMP, chest x-ray, EKG, troponin profile, D-dimer. EKG shows s
--- NOTE | 2022-01-19 21:23 | PC.NURSE ---
Labs drawn via straight stick per Tracy Blunt
[2022-01-19 21:30] VITALS: PULSE 52; O2SAT 99
[2022-01-19 21:35] LABS: Basophils # 0.1 K/mm3 (0-0.2); Basophils % 1.2 % (0.1-2.0); Eosinophils # 0.2 K/mm3 (0.0-0.4); Eosinophils % 2.6 % (0.1-12.0); Hematocrit 39.6 % (37.0-47.0); Hemoglobin 12.9 g/dL (12.2-16.2); Lymphocytes # 2.8 K/mm3 (0.7-4.5); Lymphocytes % 36.4 % (10-50); Mean Corpuscular HGB Conc 32.5 g/dL (31.8-35.4); Mean Corpuscular Volume 95.5 fl (81-99); Mean Platelet Volume 8.2 fl (7.4-10.4); Monocytes # 0.5 K/mm3 (0.1-1.0); Monocytes % 6.6 % (1.7-9.3); Neutrophils % 53.2 % (37.0-80.0); Platelet Count 347 K/mm3 (142-424); Red Blood Count 4.15 M/mm3 (4.20-5.40); Red Cell Distribution Width 12.9 % (11.5-17.5); White Blood Count 7.6 K/mm3 (4.8-10.8)
[2022-01-19 21:42] LABS: Alanine Aminotransferase 21 U/L (12-78); Albumin Level 4.3 g/dl (3.5-5.0); Albumin/Globulin Ratio 1.5 (1.1-1.8); Alkaline Phosphatase 65 U/L (38-126); Anion Gap 9.2 mEq/L (5-15); Aspartate Amino Transferase 27 U/L (14-36); Blood Urea Nitrogen 17 mg/dl (7-17); Calcium 9.5 mg/dl (8.4-10.2); Carbon Dioxide 29 mmol/L (22.0-30.0); Chloride 106 mmol/L (98-107); Creatinine Clearance Estimated 151 mL/min (50-200); Estimated Glomerular Filt Rate 90 ml/min (>60); GFR (African American) 109 ML/MIN (>60); Globulin 2.9 g/dL (1.3-3.2); Glucose 94 mg/dl (74-100); Potassium 4.2 mmoL/L (3.5-5.1); Sodium 140 mmol/L (136-145); Total Protein,Serum 7.2 g/dl (6.3-8.2)
[2022-01-19 21:46] LABS: D-Dimer 0.65 ug/mL (0.0-0.5)
[2022-01-19 21:55] LABS: Bilirubin,Total < 0.1 mg/dl (0.2-1.3); Troponin I < 0.01 ng/ml (0.00-0.034)
[2022-01-19 22:08] LABS: Coronavirus 19, PCR Not Detected (NotDetected); Influenza A, PCR Not Detected (NotDetected); Influenza B, PCR Not Detected (NotDetected)
[2022-01-19 22:58] VITALS: BP 111/61
--- NOTE | 2022-01-19 23:10 | HMH.ITSTN ---
patient states she doesn't want the CT scan due to the IV contrast. States she is feeling better now & asked to speak with MD at her convenience. MD made aware.
[2022-01-20 00:04] LABS: Troponin I < 0.01 ng/ml (0.00-0.034)
[2022-01-20 00:39] VITALS: BP 124/79; PULSE 62; RESP 19; TEMP 36.7; O2SAT 99
== END 2022-01-20 00:43 | disposition home or self-care (01) ==
PROVIDERS: Emergency Provider Emergency Medicine; PCP Family Medicine
DX: R07.9 Chest pain, unspecified (principal)
CPT/HCPCS: 71046; 80053; 84484; 85025; 85378; 93005; 99284; C9803; U0003; U0005

== ENCOUNTER 2022-02-16 03:32 | Emergency (ER) | payer BC, SELFPAY ==
[2022-02-16 03:35] VITALS: BP 129/83; PULSE 71; RESP 15; TEMP 36.6; O2SAT 98; BMI 34.3
--- NOTE | 2022-02-16 03:43 | ECG_ITS ---
APPROVED REPORT Exam: Resting ECG HR:58 bpm ECG Measurements Heart Rate 58 AXES DC 140 P 49 QRSd 101 QRS 55 QT 427 T 57 QTc 423 Conclusion SINUS BRADYCARDIA WITH MARKED SINUS ARRHYTHMIA BORDERLINE ECG UNCONFIRMED REPORT Electronically signed by : Chris Logan MD 02/17/2022 16:50:27
--- NOTE | 2022-02-16 03:46 | XR_ITS ---
PROCEDURE INFORMATION: Exam: XR Chest Exam date and time: 02/16/2022 3:56 AM Age: 46 years old Clinical indication: Sternal or substernal pain; Additional info: Chest pain TECHNIQUE: Imaging protocol: Radiologic exam of the chest. Views: 2 views. COMPARISON: CR XR CHEST 2V 01/19/2022 9:03 PM FINDINGS: Lungs: Unremarkable. No consolidation. Pleural spaces: Unremarkable. No pleural effusion. No pneumothorax. Heart/Mediastinum: Unremarkable. No cardiomegaly. Bones/joints: Unremarkable. IMPRESSION: No acute findings.
[2022-02-16 03:59] LABS: Coronavirus 19, PCR Not Detected (NotDetected); Influenza A, PCR Not Detected (NotDetected); Influenza B, PCR Not Detected (NotDetected)
[2022-02-16 04:03] LABS: Basophils # 0.1 K/mm3 (0-0.2); Eosinophils # 0.2 K/mm3 (0.0-0.4); Eosinophils % 3.1 % (0.1-12.0); Hematocrit 38.3 % (37.0-47.0); Hemoglobin 12.4 g/dL (12.2-16.2); Lymphocytes # 1.7 K/mm3 (0.7-4.5); Lymphocytes % 25.4 % (10-50); Mean Corpuscular HGB Conc 32.5 g/dL (31.8-35.4); Mean Corpuscular Hemoglobin 31.1 pg (27.0-31.2); Mean Corpuscular Volume 95.7 fl (81-99); Mean Platelet Volume 8.6 fl (7.4-10.4); Monocytes # 0.4 K/mm3 (0.1-1.0); Neutrophils # 4.3 K/mm3 (1.8-7.8); Neutrophils % 64.6 % (37.0-80.0); Platelet Count 334 K/mm3 (142-424); Red Cell Distribution Width 13.2 % (11.5-17.5); White Blood Count 6.6 K/mm3 (4.8-10.8)
--- NOTE | 2022-02-16 04:12 | HMH.EDURI ---
Discharge Plan Disposition Patient Disposition: Home, Self-Care Condition: Good Chief Complaint: Upper Respiratory Infection Prescriptions Prescriptions: New azithromycin [azithromycin] 250 mg tablet 250 mg PO DIRECTED Qty: 6 0RF Rx Instructions: Take two (2) tablets on day #1, then one (1) tablet day #2 thru #5 prednisone [prednisone] 20 mg tablet 20 mg PO BID Qty: 10 0RF benzonatate 100 mg Capsule 100 mg PO Q8H Qty: 5 0RF No Action estradiol 1 mg tablet 1 mg PO DAILY Label Comments: TAKE 1 TABLET BY MOUTH ONCE DAILY progesterone micronized 200 mg capsule 200 mg PO DAILY Label Comments: TAKE 1 CAPSULE BY MOUTH ONCE DAILY Referrals Follow up/Referrals: Sukhi Rees MD [Primary Care Provider] - See instructions Clinical Impressions Clinical Impression: Atypical chest pain, Bronchitis Instructions Patient Instructions: DI for Acute Bronchitis Discharge ED Provider: Gómez Penn URI/Sore Throat HPI General Chief Complaint: Upper Respiratory Infection Stated Complaint: Cough,SOA,chest congestion Time Seen by Provider: 02/16/22 04:12 Mode of Arrival: Ambulatory Source of Information: Patient and Medical Record Limitations: No Limitations Description of Symptoms (Recalled from ER Triage Doc. by RN): COUGH, CONGESTION, CHEST HEAVINESS X 3 DAYS. REQUEST COVID TESTING. 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 Complaint: cough Onset (ago): day(s) Duration: intermittent Severity: moderate Able to tolerate fluids by mouth: Yes Context: sick contacts Associated symptoms: denies other symptoms Treatments prior to arrival: none Related Data Home Medications Medication Instructions Recorded Confirmed estradiol 1 mg tablet 1 mg PO DAILY hormone 03/19/20 02/16/22 progesterone micronized 200 mg 200 mg PO DAILY hormone 03/19/20 02/16/22 capsule Previous Rx's Medication Instructions Recorded azithromycin 250 mg tablet 250 mg PO DIRECTED #6 tabs 02/16/22 benzonatate 100 mg capsule 100 mg PO Q8H #5 caps 02/16/22 prednisone 20 mg tablet 20 mg PO BID #10 tabs 02/16/22 Allergies Allergy/AdvReac Type Severity Reaction Status Date / Time No Known Allergies Allergy Verified 10/20/21 14:04 PFSH PFSH Social History Smoking Status: Current every day smoker tobacco type: cigarettes packs per day: 0 second hand exposure: Yes alcohol intake: never substance use type: denies use current occupational status: other household members: spouse housing: house 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 current occupational exposures/hazards: Yes caffeine: Yes ROS Obtained: Yes All systems reviewed & no additional complaints except as documented Physical Exam General General appearance: alert Head Head exam: atraumatic and normocephalic Eye Eye exam: Present PERRL and EOMI ENT ENT exam: Present normal oropharynx and mucous membranes moist Neck Neck exam: Present full ROM Respiratory Respiratory exam: Present normal lung sounds bilaterally; Absent respiratory distress Cardiovascular Cardiovascular exam: Present regular rate; Absent systolic murmur Abdominal Exam Abdominal exam: Present soft Extremities Exam Extremities exam: Present normal inspection; Absent tenderness Neurological Exam Neurological exam: Present alert, oriented X3 and CN II-XII intact Psychiatric Psychiatric exam: Present normal affect Skin Skin exam: Absent rash Medical Decision Making Medical Records Medical records reviewed: Yes I reviewed the patient's medical records. Jag Inquiry Pt receiving controlled substance: No Vital Signs: 02/16/22 03:35 02/16/22 05:04 02/16/22 05:04 Temperature 97.8 F 98.1 F Temperature Source Oral Oral Pulse Rate 78 Pulse Rate [Left Radial] 71 Respiratory Rate 15 16 Blood Pressure 116/63 Blood Pressure [Right Arm] 129/83 Blood Pressure Mean [Ri
[2022-02-16 04:14] LABS: Alanine Aminotransferase 19 U/L (12-78); Alkaline Phosphatase 66 U/L (38-126); Anion Gap 8.7 mEq/L (5-15); Aspartate Amino Transferase 22 U/L (14-36); Bilirubin,Unconjugated 0.1 mg/dL (0.0-1.1); Blood Urea Nitrogen 12 mg/dl (7-17); Calcium 8.8 mg/dl (8.4-10.2); Carbon Dioxide 27 mmol/L (22.0-30.0); Chloride 108 mmol/L (98-107); Creatinine Clearance Estimated 152 mL/min (50-200); Estimated Glomerular Filt Rate 90 ml/min (>60); GFR (African American) 109 ML/MIN (>60); Glucose 97 mg/dl (74-100); Potassium 3.7 mmoL/L (3.5-5.1); Sodium 140 mmol/L (136-145); Total Protein,Serum 6.7 g/dl (6.3-8.2)
[2022-02-16 04:15] LABS: Bilirubin,Indirect 0.1 mg/dL (0.0-0.9); Bilirubin,Total 0.1 mg/dl (0.2-1.3)
[2022-02-16 04:19] LABS: C-Reactive Protein 1.1 mg/L (0-4)
[2022-02-16 04:29] LABS: Troponin I < 0.01 ng/ml (0.00-0.034)
[2022-02-16 04:32] LABS: Procalcitonin 0.035 ng/mL (0.0-2.0)
[2022-02-16 04:53] LABS: Erythrocyte Sedimentation Rate 14 mm/hr (0-20)
[2022-02-16 05:04] VITALS: BP 116/63; PULSE 78; RESP 16; TEMP 36.7; O2SAT 97
[2022-02-16 05:07] LABS: NT Pro Brain Natriuretic Pep. 153 pg/mL (0-125)
== END 2022-02-16 05:43 | disposition home or self-care (01) ==
PROVIDERS: Emergency Provider Emergency Medicine; PCP Family Medicine
DX: R07.89 Other chest pain (principal); J40 Bronchitis, not specified as acute or chronic; Z72.0 Tobacco use; Z79.890 Hormone replacement therapy
CPT/HCPCS: 71046; 80048; 80076; 83880; 84145; 84484; 85025; 85651; 86140; 93005; 96365; 99284; C9803; U0003; U0005

== ENCOUNTER 2022-05-02 11:54 | Emergency (ER) | payer BC, SELFPAY ==
[2022-05-02 13:45] VITALS: BP 134/70; PULSE 89; RESP 18; TEMP 36.6; O2SAT 99; BMI 35.2
[2022-05-02 14:14] LABS: UTC Influenza A Antigen Negative (Negative); UTC Influenza B Antigen Negative (Negative); UTC Strep Screen (Rapid) Negative (Negative)
[2022-05-02 14:22] VITALS: BP 134/70; PULSE 89; RESP 18; TEMP 36.6; O2SAT 99
[2022-05-02 14:22] LABS: Adenovirus,PCR Not Detected (NotDetected); Bordetella Pertussis Not Detected (NotDetected); Chlamydophila Pneumoniae, PCR Not Detected (NotDetected); Coronavirus 229E Not Detected (NotDetected); Coronavirus NL63 Not Detected (NotDetected); Coronavirus OC43 Not Detected (NotDetected); Coronovirus HKU1,PCR Not Detected (NotDetected); Human Metapneumovirus Not Detected (NotDetected); Influenza A, PCR Not Detected (NotDetected); Influenza AH1, 2009 Not Detected (NotDetected); Influenza AH1, PCR Not Detected (NotDetected); Influenza AH3,PCR Not Detected (NotDetected); Influenza B, PCR Not Detected (NotDetected); Mycoplasma Pneumoniae, PCR Not Detected (NotDetected); Parainfluenza 1, PCR Not Detected (NotDetected); Parainfluenza 2, PCR Not Detected (NotDetected); Parainfluenza 3, PCR Not Detected (NotDetected); Parainfluenza 4, PCR Not Detected (NotDetected); Rhinovirus/Enterovirus Not Detected (NotDetected)
--- NOTE | 2022-05-02 14:28 | EXP.UTC ---
Discharge Plan Disposition Patient Disposition: Home, Self-Care Condition: Good Prescriptions Prescriptions: New azithromycin [Zithromax Z-Rubén] 250 mg tablet See Rx Instructions .ROUTE .COMPLEX 5 Days Qty: 6 0RF Rx Instructions: For 250 mg dose pack: take 500 mg today (day 1), then 250 mg for 4 days (days 2-5) No Action progesterone micronized 200 mg capsule 200 mg PO DAILY Label Comments: TAKE 1 CAPSULE BY MOUTH ONCE DAILY Referrals Follow up/Referrals: Sukhi Rees MD [Primary Care Provider] - See instructions Activity Restrictions/Add. Instructions Additional Instructions/Restrictions: *Monitor Temp, Over the counter Motrin or Tylenol as directed/as needed Tylenol every 4 hours and Motrin every 6 hours (as long as your family doctor has told you that you can take it) for fever or pain. and straight to ER if unable to lower temp less than 101.0 after medication given *Warm salt water gargles may help to soothe the throat *Throat Lozenges? *Warm fluids like tea with honey may help to soothe the throat? *Sleep elevated *Humidifier/Vaporizer Your throat swab was sent for culture. Those results are typically sent to your primary care. Be sure to follow up in 2-3 days with your family doctor/primary care physician if no improvement so they can review those result and treat if necessary. If you don?t have a primary care doctor, I recommend you get one but in the mean time, you will have to return to a walk in clinic Follow up IMMEDIATELY for new or worsening symptoms or no Noticeable improvement over the next 48-72 hours. 911 for difficulty breathing or swallowing You were tested for today for COVID19 your test result should be back in the next 24-48 hours, you may check your results on the [facility] Portal Clinical Impressions Clinical Impression: URI (upper respiratory infection) Stand Alone Forms Stand Alone Forms: Work/School Release Instructions Patient Instructions: Sore Throat, DI for Ear Pain-Adult Discharge ED Provider[place] Anat Kwan [facility] [place] General Stated complaint: sore throat, congestion, lower back pain, covid + Mode of Arrival: Ambulatory Source of Information: Patient Limitations: No Limitations Time Seen by Provider: 05/02/22 14:28 Description of Symptoms (Recalled from Triage Doc. by RN): PATIENT C/O SWOLLEN THROAT, LOWER BACK PAIN, AND RIGHT EAR PAIN X 3 DAYS HEENT Symptoms (Recalled from RN notes): Yes Resp Symptoms (Recalled from RN notes): No Skin Symptoms (Recalled from RN notes): No MS Symptoms (Recalled from RN notes): Yes Functional Status (Recalled from RN notes): WNL History of Present Illness Provider Complaint: Patient states that her throat is swollen and she has white patchy like areas on her tonsils, pain in right ear, sinus congestion and body aches, states that she is achy in her back and legs States that she thought she may have the flu States that she was seen In PCP office a couple days ago and they tested her for flu and strep but when she got home she was still not feeling any better so she took an at home COVID test and it was positive so she came in to get checked for it here Related Data Home Medications Medication Instructions Recorded Confirmed progesterone micronized 200 mg 200 mg PO DAILY hormone 03/19/20 05/02/22 capsule Previous Rx's Medication Instructions Recorded azithromycin 250 mg tablet See Rx Instructions PO .COMPLEX 5 05/02/22 (Zithromax Z-Rubén) days #6 tabs Allergies Allergy/AdvReac Type Severity Reaction Status Date / Time No Known Allergies Allergy Verified 10/20/21 14:04 Worker's Comp Is this a Worker's Comp case?: No PFSH PFSH Surgical History (Updated 05/02/22 @ 14:08 by Angela Etienne RN) History of section History of cholecystectomy Social History (Updated 05/02/22 @ 14:08 by Angela Etienne RN) Smoking Status: Current every day smoker tobacc
[2022-05-02 22:09] LABS: Coronavirus 19, PCR Detected (NotDetected); Respiratory Syncytial Virus Detected (NotDetected)
== END 2022-05-02 14:50 | disposition home or self-care (01) ==
PROVIDERS: Emergency Provider Nurse Practitioner; PCP Family Medicine
DX: J06.9 Acute upper respiratory infection, unspecified (principal)
CPT/HCPCS: 87581; 87632; 87798; 87804; 87880; 99212; C9803; G0463; U0003; U0005

== ENCOUNTER 2022-09-01 06:19 | Day surgery (SDC) | payer BC, SELFPAY ==
[2022-08-31 10:36] VITALS: BMI 35.0
[2022-09-01 06:37] VITALS: BP 115/51; PULSE 88; RESP 20; TEMP 36.8; O2SAT 97
[2022-09-01 07:02] LABS: Urine Pregnancy, HCG Qual. Negative (Negative)
[2022-09-01 07:22] VITALS: O2SAT 97
[2022-09-01 07:57] VITALS: BP 83/49; PULSE 71; RESP 14; TEMP 36.6; O2SAT 96
--- NOTE | 2022-09-01 07:58 | HMH.SCOPE ---
Procedure: Date: 09/01/22 Patient Date of :: 1975 Procedure Performed:: Colonoscopy Indications:: History of colon polyps Performing Provider:: Avtar Marquez MD Referring Provider:: . Sedation:: Monitored anesthesia care Procedure:: After informed consent was obtained the patient was taken to the endoscopy suite. Sedation ensued after the patient was transferred to the left lateral decubitus position. Pulse, blood pressure, and oxygen saturation were monitored throughout the procedure. Digital rectal exam revealed no significant abnormality. The colonoscope was placed in position. The entire colon was evaluated. The colonoscope was carefully removed and the patient was transferred to recovery in stable condition. Please see findings and specimens below for detail. Findings:: Bowel preparation fair Fairly significant lack of relaxation Specimens:: None Recommendations:: Repeat colonoscopy 3-5 years Continue with plans with regard to umbilical hernia repair Complications:: No immediate Estimated blood obtained (mL): 0
--- NOTE | 2022-09-01 08:00 | EXP.ANES.CKL ---
[facility] Disclaimer: The information contained in this section may have been updated after the patient was seen, as this information can be updated by other users. 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 Anxiety and depression Bronchitis Edema Hemorrhoid History of COVID-19 History of gastroesophageal reflux (GERD) Mitral valve disorder Psoriasis Smoker Urinary tract infection Surgical History History of section History of cholecystectomy History of colonoscopy History of endometrial ablation History of surgery Family History Other Cancer Diabetes Heart disease Social History Smoking Status: Current every day smoker tobacco type: cigarettes packs per day: 1 (PER WEEK ) years smoked: 25 second hand exposure: No alcohol intake: never substance use type: denies use current occupational status: employed Travel in the last 8 weeks: None household members: spouse housing: house 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 current occupational exposures/hazards: Yes caffeine: Yes [facility] Anesthesia Checklist Patient Identification Patient Identification: Arm Band Structural Data Admitted From: Home Planned Operative Procedure/s: Colonoscopy Consent for Planned Operative Procedure(s) Verified: Yes Verified Documents: Surgical Consent and History and Physical NPO Status Verified Time NPO: 00:00 Additional verifications Anesthesia Reactions: No Airway Assessment C-Spine Mobility Assessed: Yes TMJ Mobility Assessed: Yes Dentition: Good Dentition Neurological Assessment Level of Consciousness: Awake and Alert Anesthesia Plan Anesthesia Risk discussed: Yes Anesthesia Plan: Verified ASA Class: II Anesthesia Type: MAC
[2022-09-01 08:07] VITALS: BP 95/63; PULSE 63; RESP 16; O2SAT 97
[2022-09-01 08:17] VITALS: BP 91/56; PULSE 54; RESP 16; O2SAT 98
[2022-09-01 08:27] VITALS: BP 119/68; PULSE 51; RESP 16; O2SAT 99
== END 2022-09-01 08:29 | disposition home or self-care (01) ==
PROVIDERS: PCP Family Medicine; Visit Provider Surgery
PROC: 0DJD8ZZ Inspection of Lower Intestinal Tract, Via Natural or Artificial Opening Endoscopic (ICD-10-PCS; CPT 45378; principal; 2022-09-01 07:30)
DX: Z12.11 Encounter for screening for malignant neoplasm of colon (principal); Z86.010 Personal history of colon polyps; F17.210 Nicotine dependence, cigarettes, uncomplicated; Z79.899 Other long term (current) drug therapy
CPT/HCPCS: 45378; 81025

== ENCOUNTER 2022-11-14 15:26 | Emergency (ER) | payer BC, SELFPAY ==
[2022-11-14 15:45] VITALS: BP 131/76; PULSE 74; RESP 18; TEMP 36.9; O2SAT 100; BMI 35.5
[2022-11-14 15:45] LABS: Apearance,Urine Cloudy (Clear); Bilirubin,Urine Negative (Negative); Blood, Urine 2+ (Negative); Color,Urine Dark Yellow (Yellow); Glucose,Urine (UA) Negative (Negative); Ketones,Urine Negative (Negative); PH,Urine 5.5 (5.0-8.5); Protein,Urine Trace (Negative); Specific Gravity, Urine 1.025 (1.005-1.030); UTC Leukocyte Esterase,Urine 1+ (Negative); UTC Nitrate,Urine Positive (Negative); Urobilinogen,Urine 0.2 EU/dl (0.2)
--- NOTE | 2022-11-14 16:16 | EXP.UTC ---
Discharge Plan Disposition Patient Disposition: Home, Self-Care Condition: Good Prescriptions Prescriptions: New cephalexin [cephalexin] 500 mg tablet 500 mg PO BID 7 Days Qty: 14 0RF fluconazole [Diflucan] 100 mg tablet 100 mg PO DAILY Qty: 1 1RF Rx Instructions: 1 tab may repeat after 3 days if no improvement No Action progesterone micronized 200 mg capsule 200 mg PO DAILY Label Comments: TAKE 1 CAPSULE BY MOUTH ONCE DAILY estradiol 1 mg tablet 1 mg PO DAILY Label Comments: TAKE 1 TABLET BY MOUTH ONCE DAILY Referrals Follow up/Referrals: Sukhi Rees MD [Primary Care Provider] - See instructions Activity Restrictions/Add. Instructions Additional Instructions/Restrictions: Increase fluids, water and not soda or tea. Can drink cranberry juice or cranberry extract. Wipe front to back Wear cotton underwear Empty bladder after intercourse Start antibiotics immediately and make sure you take the full course although you may start to see improvement over the next 48 hours. You can eat yogurt or take probiotics to decrease diarrhea or yeast infection caused by the antibiotic Be sure to follow-up anytime for new or worsening symptoms in 48 hours for wound urine culture results be sure to let you PCP no recent urine for culture so they can request records and ensure that you have appropriate antibiotic if you are not getting better or getting worse. If symptoms worsen or do not improve return or be seen in the ER. Follow-up with primary care this week. Clinical Impressions Clinical Impression: UTI (urinary tract infection) Instructions Patient Instructions: DI for Urinary Tract Infection (UTI) Discharge ED Provider: Sylvia Srinivasan [facility] General Stated complaint: Possible UTI; back pain Mode of Arrival: Ambulatory Source of Information: Patient Limitations: No Limitations Time Seen by Provider: 11/14/22 16:17 Description of Symptoms (Recalled from Triage Doc. by RN): possivble UTI or kidney infection. Urgency to urinate HEENT Symptoms (Recalled from RN notes): No Resp Symptoms (Recalled from RN notes): No Skin Symptoms (Recalled from RN notes): No MS Symptoms (Recalled from RN notes): Yes Functional Status (Recalled from RN notes): n/a History of Present Illness Provider Complaint: 47 yr old female presents for burning, urgency, freq and hesitancy. Related Data Home Medications Medication Instructions Recorded Confirmed progesterone micronized 200 mg 200 mg PO DAILY hormone 03/19/20 11/14/22 capsule estradiol 1 mg tablet 1 mg PO DAILY hormone 09/01/22 11/14/22 Previous Rx's Medication Instructions Recorded cephalexin 500 mg tablet 500 mg PO BID 7 days #14 tabs 11/14/22 fluconazole 100 mg tablet 100 mg PO DAILY #1 tab 11/14/22 (Diflucan) Allergies Allergy/AdvReac Type Severity Reaction Status Date / Time No Known Allergies Allergy Verified 11/14/22 16:05 Worker's Comp Is this a Worker's Comp case?: No [facility] Disclaimer: The information contained in this section may have been updated after the patient was seen, as this information can be updated by other users. 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
[2022-11-14 16:42] VITALS: BP 131/76; PULSE 74; RESP 18; TEMP 36.9; O2SAT 100
== END 2022-11-14 16:41 | disposition home or self-care (01) ==
PROVIDERS: Nurse Practitioner Family; Emergency Provider Student in an Organized Health Care Education/Training Program; PCP Family Medicine
DX: N39.0 Urinary tract infection, site not specified (principal); F17.210 Nicotine dependence, cigarettes, uncomplicated; F41.9 Anxiety disorder, unspecified; F32.9 Major depressive disorder, single episode, unspecified; B96.29 Other Escherichia coli [E. coli] as the cause of diseases classified elsewhere
CPT/HCPCS: 81003; 87086; 87088; 87186; 99212; 99214; G0463

== ENCOUNTER 2023-08-01 11:00 | Emergency (ER) | payer BC, SELFPAY ==
[2023-08-01 12:10] VITALS: BP 123/83; PULSE 71; RESP 18; TEMP 36.7; O2SAT 97; BMI 34.3
--- NOTE | 2023-08-01 12:12 | ED_ITS ---
Discharge Plan Disposition Patient Disposition: Home, Self-Care Condition: Good Prescriptions Prescriptions: New azithromycin [Zithromax] 250 mg tablet 250 mg PO UD DOSE PK Qty: 6 0RF Rx Instructions: Take two (2) tablets today, then one (1) tablet days #2 thru #5 fluconazole 150 mg tablet 150 mg PO ONCE Qty: 1 3RF benzonatate [benzonatate] 100 mg capsule 100 mg PO TIDP PRN (Reason: Cough) Qty: 30 0RF methylprednisolone 4 mg Tablets,Dose Pack 4 mg PO DIRECTED 6 Days Qty: 21 0RF Rx Instructions: Take 1 pack as directed for 6 days No Action progesterone micronized 200 mg capsule 200 mg PO DAILY Patient Comments: TAKE 1 CAPSULE BY MOUTH ONCE DAILY estradiol 1 mg tablet 1 mg PO DAILY Patient Comments: TAKE 1 TABLET BY MOUTH ONCE DAILY Referrals Follow up/Referrals: Sukhi Rees MD [Primary Care Provider] - See instructions Activity Restrictions/Add. Instructions Additional Instructions/Restrictions: Drink plenty of fluids. Take tylenol or ibuprofen for pain or fever. Take the medications as directed. Follow up with your regular doctor. GO TO THE ER FOR ANY WORSENING SYMPTOMS Clinical Impressions Clinical Impression: Acute viral syndrome, Sinusitis Stand Alone Forms Stand Alone Forms: Work/School Release Instructions Patient Instructions: Sinusitis, DI for Sinusitis, DI for Viral Syndrome Discharge ED Provider: Tj Nolasco [facility] [place] General Stated complaint: congestion sinus pressure st ear pain grier Time Seen by Provider: 08/01/23 12:12 History of Present Illness Provider Complaint: She states that for the past 2 days she has had sore throat, fever, body aches and malaise. Related Data Home Medications Medication Instructions Recorded Confirmed progesterone micronized 200 mg 200 mg PO DAILY hormone 03/19/20 08/01/23 capsule estradiol 1 mg tablet 1 mg PO DAILY hormone 09/01/22 08/01/23 Previous Rx's Medication Instructions Recorded azithromycin 250 mg tablet 250 mg PO UD DOSE PK #6 tabs 08/01/23 (Zithromax) benzonatate 100 mg capsule 100 mg PO TIDP PRN Cough #30 caps 08/01/23 fluconazole 150 mg tablet 150 mg PO ONCE 1 dose #1 tab 08/01/23 methylprednisolone 4 mg tablets in 4 mg PO DIRECTED 6 days #21 tabs 02/11/24 a dose pack Allergies Allergy/AdvReac Type Severity Reaction Status Date / Time No Known Allergies Allergy Verified 08/01/23 12:24 [facility] Disclaimer: The information contained in this section may have been updated after the patient was seen, as this information can be updated by other users. 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) Diabetes Heart disease Cancer Social History Smoking Status: Current every day smoker tobacco type: cigarettes packs per day: 1 (PER WEEK ) years smoked: 25 second hand exposure: No alcohol intake: never substance use type: denies use current occupational status: employed Travel in the last 8 weeks: None household members: spouse housing: house 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 current occupational exposures/hazards: Yes caffeine: Yes ROS Obtained: Yes All systems reviewed & no additional complaints except as documented Constitutional Constitutional: Reports chills and Reports fever(s) Eyes Eyes: Denies eye discharge ENT Ears, Nose, Mouth, and Throat: Reports as per HPI Cardiovascular Cardiovascular: Denies chest pain Respiratory Respiratory: Denies chest congestion and Reports cough Gastrointestinal Gastrointestingal: Reports nausea; Denies abdominal pain, constipation, cramping, diarrhea or vomiting Musculoskeletal Musculoskeletal: Denies arthralgias Integumentary/Breasts Skin/Breast: Denies rash Neurologic Neurologic: Denies paresthesias Physical Exam General General appearance: alert and in no apparent distress Head Head exam: atraumatic, normocephalic and normal inspection Eye Eye exam: Present normal appearance, PERRL and EOMI ENT ENT exam: Present mucous membranes moist and normal external ear exam Expanded ENT Exam TM/Canal exam: Bilateral TM: erythema and bulging Nose exam: Absent sinus tenderness Mouth exam: Present normal external inspection; Absent drooling Teeth exam: Present normal inspection Throat exam: Present tonsillar erythema, tonsillomegaly and tonsillar exudate Neck Neck exam: Present normal inspection, full ROM and trachea midline; Absent tenderness, meningismus or lymphadenopathy Chest Chest inspection: Present normal inspection and symmetric chest wall rise; Absent tenderness Respiratory Respiratory exam: Present normal lung sounds bilaterally; Absent respiratory distress, wheezes or stridor Cardiovascular Cardiovascular exam: Present regular rate and normal rhythm; Absent systolic murmur or diastolic murmur Abdominal Exam Abdominal exam: Present soft and normal bowel sounds; Absent distention, tenderness, guarding, rebound or rigidity Extremities Exam Extremities exam: Present normal inspection and normal capillary refill; Absent calf tenderness Back Exam Back exam: Present normal inspection and full ROM; Absent tenderness, CVA tenderness (R) or CVA tenderness (L) Neurological Exam Neurological exam: Present alert, oriented X3 and CN II-XII intact Psychiatric Psychiatric exam: Present normal affect and normal mood Skin Skin exam: Present warm, dry, intact and normal color Medical Decision Making Medical Records Medical records reviewed: No I reviewed the patient's medical records. Jag Inquiry Pt receiving controlled substance: No Lab Data Lab results reviewed: Yes I reviewed the patient's lab results.
[2023-08-01 12:37] LABS: UTC Strep Screen (Rapid) Negative (Negative)
[2023-08-01 12:38] LABS: UTC Influenza A Antigen Negative (Negative); UTC Influenza B Antigen Negative (Negative)
[2023-08-01 13:18] LABS: Coronavirus 19, PCR Not Detected (NotDetected); Influenza A, PCR Not Detected (NotDetected); Influenza B, PCR Not Detected (NotDetected)
[2023-08-01 13:19] VITALS: BP 123/83; PULSE 71; RESP 18; TEMP 36.7; O2SAT 97
== END 2023-08-01 13:18 | disposition home or self-care (01) ==
PROVIDERS: Emergency Provider Nurse Practitioner Family; PCP Family Medicine
DX: J01.90 Acute sinusitis, unspecified (principal); R50.9 Fever, unspecified; R07.0 Pain in throat; B34.9 Viral infection, unspecified; F17.210 Nicotine dependence, cigarettes, uncomplicated
CPT/HCPCS: 87636; 87804; 87880; 99212; 99214; G0463

== ENCOUNTER 2024-03-15 16:43 | Emergency (ER) | payer BC, SELFPAY ==
[2024-03-15 17:00] VITALS: BP 135/45; PULSE 75; RESP 20; TEMP 36.7; O2SAT 99; BMI 33.3
--- NOTE | 2024-03-15 17:00 | ED_ITS ---
Discharge Plan Disposition Patient Disposition: Home, Self-Care Condition: Good Prescriptions Prescriptions: New famotidine 20 mg tablet 20 mg PO BID 14 Days Qty: 28 0RF No Action progesterone micronized 200 mg capsule 200 mg PO DAILY Patient Comments: TAKE 1 CAPSULE BY MOUTH ONCE DAILY estradiol 1 mg tablet 1 mg PO DAILY Patient Comments: TAKE 1 TABLET BY MOUTH ONCE DAILY azithromycin [Zithromax] 250 mg tablet 250 mg PO UD DOSE PK Qty: 6 0RF Rx Instructions: Take two (2) tablets today, then one (1) tablet days #2 thru #5 fluconazole 150 mg tablet 150 mg PO ONCE Qty: 1 3RF benzonatate [benzonatate] 100 mg capsule 100 mg PO TIDP PRN (Reason: Cough) Qty: 30 0RF methylprednisolone 4 mg Tablets,Dose Pack 4 mg PO DIRECTED 6 Days Qty: 21 0RF Rx Instructions: Take 1 pack as directed for 6 days Referrals Follow up/Referrals: Genny Her APRN [Primary Care Provider] - See instructions Activity Restrictions/Add. Instructions Additional Instructions/Restrictions: Drink plenty of fluids. Take the medications as directed. Eat a bland diet for the next week or so. Follow up with your regular doctor. GO TO THE ER FOR ANY WORSENING SYMPTOMS Return a stool sample so it can be analyzed for different infections. Clinical Impressions Clinical Impression: Gastritis Instructions Patient Instructions: Gastritis, DI for Gastritis, Famotidine Print Language Print Language: Estonian Discharge ED Provider: Tj Nolasco [facility] [place] [place] HPI General Stated complaint: stomach pains, sulfur burps, diarrhea Time Seen by Provider: 03/15/24 17:00 History of Present Illness Provider Complaint: She states that for the past 3 days she has had epigastric pain, nausea, and diarrhea. She is currently taking Zepbound for weight loss. She states that her symptoms began after her dose was increased of this medication. Related Data Home Medications ?Medication ?Instructions ?Recorded ?Confirmed progesterone micronized 200 mg 200 mg PO DAILY hormone 03/19/20 08/01/23 capsule estradiol 1 mg tablet 1 mg PO DAILY hormone 09/01/22 08/01/23 Previous Rx's ?Medication ?Instructions ?Recorded azithromycin 250 mg tablet 250 mg PO UD DOSE PK #6 tabs 08/01/23 (Zithromax) benzonatate 100 mg capsule 100 mg PO TIDP PRN Cough #30 caps 08/01/23 fluconazole 150 mg tablet 150 mg PO ONCE 1 dose #1 tab 08/01/23 methylprednisolone 4 mg tablets in 4 mg PO DIRECTED 6 days #21 tabs 08/01/23 a dose pack famotidine 20 mg tablet 20 mg PO BID 2 weeks #28 tabs 03/15/24 Allergies Allergy/AdvReac Type Severity Reaction Status Date / Time No Known Allergies Allergy Verified 08/01/23 12:24 [facility] Disclaimer: The information contained in this section may have been updated after the patient was seen, as this information can be updated by other users. 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) Diabetes Heart disease Cancer Social History Smoking Status: Current every day smoker tobacco type: cigarettes packs per day: 1 (PER WEEK ) years smoked: 25 second hand exposure: No alcohol intake: never substance use type: denies use current occupational status: employed Travel in the last 8 weeks: None household members: spouse housing: house 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 current occupational exposures/hazards: Yes caffeine: Yes ROS Obtained: Yes All systems reviewed & no additional complaints except as documented Constitutional Constitutional: Denies chills, Denies fever(s) and Reports poor appetite ENT Ears, Nose, Mouth, and Throat: Denies dizziness and Denies sore throat Cardiovascular Cardiovascular: Denies dyspnea Respiratory Respiratory: Denies chest congestion, Denies cough and Denies dyspnea Gastrointestinal Gastrointestingal: Reports as per HPI Genitourinary Female Genitourinary: Denies difficulty voiding, Denies dysuria, Denies hematuria, Denies urinary frequency, Denies urinary incontinence, Denies urinary hesitancy and Denies urinary urgency Musculoskeletal Musculoskeletal: Denies arthralgias Integumentary/Breasts Skin/Breast: Denies rash Neurologic Neurologic: Denies dizziness Physical Exam General General appearance: alert and in no apparent distress Head Head exam: atraumatic, normocephalic and normal inspection Eye Eye exam: Present normal appearance, PERRL and EOMI ENT ENT exam: Present normal exam, normal oropharynx, mucous membranes moist, TM's normal bilaterally and normal external ear exam Neck Neck exam: Present normal inspection, full ROM and trachea midline; Absent meningismus or lymphadenopathy Chest Chest inspection: Present normal inspection and symmetric chest wall rise; Absent tenderness Respiratory Respiratory exam: Present normal lung sounds bilaterally; Absent respiratory distress Cardiovascular Cardiovascular exam: Present regular rate and normal rhythm; Absent JVD Abdominal Exam Abdominal exam: Present soft, tenderness and normal bowel sounds; Absent distention, guarding, rebound, rigidity, psoas sign, obturator sign, heel tap sign, Moscoso's sign, Rovsing's sign or tenderness at McBurney's Point Abdominal tenderness: Present epigastrium and mild Extremities Exam Extremities exam: Present normal inspection, full ROM and normal capillary refill; Absent calf tenderness Back Exam Back exam: Present normal inspection; Absent tenderness Neurological Exam Neurological exam: Present alert and oriented X3 Psychiatric Psychiatric exam: Present normal affect and normal mood Skin Skin exam: Present warm, dry, intact and normal color Lymphatic Lymphatic Findings: no adenopathy Medical Decision Making Medical Records Medical records reviewed: No I reviewed the patient's medical records. Screening: Per USPSTF and CDC recommendations, given the prevalence of disease in our region, it is our hospital?s policy to screen for HIV and viral Hepatitis for all patients aged 18 and over and those with ongoing risk factors. Jag Inquiry Pt receiving controlled substance: No Lab Data Lab results reviewed: Yes I reviewed the patient's lab results. 03/15/24 17:32 03/15/24 17:32
[2024-03-15 17:55] LABS: Basophils # 0.1 K/mm3 (0-0.2); Basophils % 0.9 % (0.1-2.0); Eosinophils # 0.1 K/mm3 (0.0-0.4); Eosinophils % 1.9 % (0.1-12.0); Hematocrit 44.2 % (37.0-47.0); Lymphocytes # 1.8 K/mm3 (0.7-4.5); Lymphocytes % 29.4 % (10-50); Mean Corpuscular HGB Conc 31.7 g/dL (31.8-35.4); Mean Corpuscular Hemoglobin 30.9 pg (27.0-31.2); Mean Corpuscular Volume 97.6 fl (81-99); Mean Platelet Volume 8.8 fl (7.4-10.4); Monocytes # 0.4 K/mm3 (0.1-1.0); Monocytes % 7.1 % (1.7-9.3); Neutrophils # 3.8 K/mm3 (1.8-7.8); Neutrophils % 60.7 % (37.0-80.0); Platelet Count 405 K/mm3 (142-424); Red Blood Count 4.53 M/mm3 (4.20-5.40); Red Cell Distribution Width 13.1 % (11.5-17.5); White Blood Count 6.3 K/mm3 (4.8-10.8)
[2024-03-15 17:59] LABS: Alanine Aminotransferase 25 U/L (12-78); Albumin Level 4.9 g/dl (3.5-5.0); Albumin/Globulin Ratio 1.6 (1.1-1.8); Alkaline Phosphatase 59 U/L (38-126); Amylase 66 U/L (30-110); Anion Gap 8.9 mEq/L (5-15); Aspartate Amino Transferase 30 U/L (14-36); Bilirubin,Total 0.6 mg/dl (0.2-1.3); Blood Urea Nitrogen 17 mg/dl (7-17); Carbon Dioxide 29 mmol/L (22.0-30.0); Chloride 103 mmol/L (98-107); Creatinine Clearance Estimated 108 mL/min (50-200); Estimated Glomerular Filt Rate 67 ml/min (>60); GFR (African American) 81 ML/MIN (>60); Globulin 3.1 g/dL (1.3-3.2); Glucose 87 mg/dl (74-100); Lipase 79 U/L (23-300); Potassium 3.9 mmoL/L (3.5-5.1); Sodium 137 mmol/L (136-145)
[2024-03-15 18:32] VITALS: BP 135/45; PULSE 75; RESP 20; TEMP 36.7
== END 2024-03-15 18:40 | disposition home or self-care (01) ==
PROVIDERS: Emergency Provider Nurse Practitioner Family; PCP Nurse Practitioner
DX: K29.70 Gastritis, unspecified, without bleeding (principal); R10.13 Epigastric pain; R11.0 Nausea; R19.7 Diarrhea, unspecified
CPT/HCPCS: 80053; 82150; 83690; 85025; 99212; 99214; G0463

== ENCOUNTER 2024-06-11 08:53 | Emergency (ER) | payer BC, SELFPAY ==
[2024-06-11 10:10] VITALS: BP 128/67; PULSE 79; RESP 18; TEMP 36.7; O2SAT 98; BMI 33.5
--- NOTE | 2024-06-11 10:21 | ED_ITS ---
Discharge Plan Disposition Patient Disposition: Home, Self-Care Condition: Good Prescriptions Prescriptions: New azithromycin [Zithromax Z-Rubén] 250 mg tablet See Rx Instructions .ROUTE .COMPLEX 5 Days Qty: 6 0RF Rx Instructions: For 250 mg dose pack: take 500 mg today (day 1), then 250 mg for 4 days (days 2-5) benzonatate 100 mg capsule 100 mg PO TID PRN (Reason: cough) Qty: 30 0RF methylprednisolone [Medrol (Rubén)] 4 mg tablets,dose pack See Rx Instructions .Route .COMPLEX 6 Days Qty: 21 0RF Rx Instructions: taper pack; fluconazole 150 mg tablet 150 mg PO ONCE Qty: 1 0RF No Action progesterone micronized 200 mg capsule 200 mg PO DAILY Patient Comments: TAKE 1 CAPSULE BY MOUTH ONCE DAILY estradiol 1 mg tablet 1 mg PO DAILY Patient Comments: TAKE 1 TABLET BY MOUTH ONCE DAILY Referrals Follow up/Referrals: Genny Her APRN [Primary Care Provider] - See instructions Activity Restrictions/Add. Instructions Additional Instructions/Restrictions: * Start antibiotic today. Be sure to complete entire prescription even if feeling better * Monitor temp. Tylenol every 4 hours as needed and / or ibuprofen every 6 hours as needed ( As long as your primary care physician has told you that it ok to take both. For fever/aches/pains ER if no less than 101 despite Tylenol or Motrin * Humidifier/vaporizer or hot steamy shower * Mucinex for your cough Be sure to drink lots of water. Insurance may not cover a prescriptions for mucinex. Might be cheaper to get 400mg tablets and take 2 tablet in the morning, mid-day and evening with lots of water. *Tessalon Perles will not cause drowsiness but use at bedtime to help stop cough so that you may get some rest. *Start steroid today. Helps with inflammation therefore, cough and wheezing. Follow directions on the package. Reviewed side effects. Patient reports taking them before. Follow up IMMEDIATELY for new or worsening of symptoms OR no noticeable improvement over the next 48-72 hours. 911 immediately for any life threatening symptoms such as chest pain or difficulty breathing Clinical Impressions Clinical Impression: Sinusitis Instructions Patient Instructions: DI for Sinusitis, Sinusitis Print Language Print Language: Danish Discharge ED Provider: Anat Kwan [facility] [place] HPI General Stated complaint: congestion, headache Mode of Arrival: Ambulatory Source of Information: Patient Limitations: No Limitations Time Seen by Provider: 06/11/24 10:21 Description of Symptoms (Recalled from Triage Doc. by RN): PATIENT C/O TYSON ESTION HEENT Symptoms (Recalled from RN notes): Yes Resp Symptoms (Recalled from RN notes): No Skin Symptoms (Recalled from RN notes): No MS Symptoms (Recalled from RN notes): No Functional Status (Recalled from RN notes): WNL History of Present Illness Provider Complaint: Patient states that she has been having sinus congestion and pressure drainage in the back of her throat, cough and pressure like feeling in her ears for the last week that has not improved States today she was still not feeling any better so she came in to get checked Related Data Home Medications ?Medication ?Instructions ?Recorded ?Confirmed progesterone micronized 200 mg 200 mg PO DAILY hormone 03/19/20 06/11/24 capsule estradiol 1 mg tablet 1 mg PO DAILY hormone 09/01/22 06/11/24 Previous Rx's ?Medication ?Instructions ?Recorded azithromycin 250 mg tablet See Rx Instructions PO .COMPLEX 5 06/11/24 (Zithromax Z-Rubén) days #6 tabs benzonatate 100 mg capsule 100 mg PO TID PRN cough #30 caps 06/11/24 fluconazole 150 mg tablet 150 mg PO ONCE 1 dose #1 tab 06/11/24 methylprednisolone 4 mg tablets in See Rx Instructions .Route 06/11/24 a dose pack (Medrol (Rubén)) .COMPLEX 6 days #21 tabs Allergies Allergy/AdvReac Type Severity Reaction Status Date / Time No Known Allergies Allergy Verified 08/01/23 12:24 Worker's Comp Is this a Worker's Comp case?: No PFSH [facility] Disclaimer: The information contained in this section may have been updated after the patient was seen, as this information can be updated by other users. 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) Diabetes Heart disease Cancer Social History Smoking Status: Current every day smoker tobacco type: cigarettes packs per day: 1 (PER WEEK ) years smoked: 25 second hand exposure: No alcohol intake: never substance use type: denies use current occupational status: employed Travel in the last 8 weeks: None household members: spouse housing: house 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 current occupational exposures/hazards: Yes caffeine: Yes Have you lived/traveled outside [place] in past 30 days?: No Contact w/someone who lives/traveled outside [place] past 30 days?: No Exposure to someone with infectious disease in past 14 days?: No Do you have a fever (greater than 100.4 F or 38 C)?: No Have you tested positive for COVID-19: No Exposed to someone with COVID-19 in past 14 days?: No Do you have a sore throat?: Yes Do you have a cough?: Yes Do you have any weakness?: No Do you have any diarrhea?: No Are you experiencing any unusual bleeding?: No Do you have any muscle aches/pain?: No Do you have any abdominal pain?: No Are you experiencing loss of taste or smell?: No ROS Obtained: Yes All systems reviewed & no additional complaints except as documented and Yes Systems reviewed as appropriate & no additional complaints except as documented Constitutional Constitutional: Reports system reviewed and no additional complaints, except as documented, Reports as per HPI and Reports headache(s) ENT Ears, Nose, Mouth, and Throat: Reports system reviewed and no additional complaints, except as documented, Reports as per HPI, Reports otalgia, Reports headache(s), Reports sinus pain, Reports sinus pressure and Reports sore throat Cardiovascular Cardiovascular: Reports system reviewed and no additional complaints, except as documented and Reports as per HPI Respiratory Respiratory: Reports system reviewed and no additional complaints, except as documented and Reports as per HPI Gastrointestinal Gastrointestingal: Reports system reviewed and no additional complaints, except as documented and as per HPI Genitourinary Female Genitourinary: Reports system reviewed and no additional complaints, except as documented and Reports as per HPI Neurologic Neurologic: Reports headache(s) Physical Exam General General appearance: alert and in no apparent distress ENT ENT exam: Present mucous membranes moist Expanded ENT Exam Nose exam: Present sinus tenderness Throat exam: Present other (PND noted) Respiratory Respiratory exam: Present normal lung sounds bilaterally; Absent respiratory distress or wheezes Cardiovascular Cardiovascular exam: Present regular rate, normal rhythm and normal heart sounds Abdominal Exam Abdominal exam: Present soft and normal bowel sounds; Absent distention or tenderness Neurological Exam Neurological exam: Present alert, oriented X3 and normal gait Medical Decision Making Medical Records Screening: Per USPSTF and CDC recommendations, given the prevalence of disease in our region, it is our hospital?s policy to screen for HIV and viral Hepatitis for all patients aged 18 and over and those with ongoing risk factors. Jag Inquiry Pt receiving controlled substance: No Jag was queried for this patient: No Vital Signs: 06/11/24 10:10 Temperature 98.1 F Temperature Source Oral Pulse Rate [Left Brachial] 79 Respiratory Rate 18 Blood Pressure [Left Arm] 128/67 Blood Pressure Mean [Left Arm] 87 Blood Pressure Source [Left Arm] Automatic Cuff Blood Pressure Position [Left Arm] Sitting 02 Sat by Pulse Oximetry 98 Oxygen Delivery Method Room Air
[2024-06-11 10:30] VITALS: BP 128/67; PULSE 79; RESP 18; TEMP 36.7; O2SAT 98
== END 2024-06-11 10:32 | disposition home or self-care (01) ==
PROVIDERS: Emergency Provider Nurse Practitioner; PCP Nurse Practitioner
DX: J01.90 Acute sinusitis, unspecified (principal)
CPT/HCPCS: 99213; G0381

== ENCOUNTER 2024-10-24 15:18 | Outpatient (CLI) | payer BC, SELFPAY ==
--- NOTE | 2024-10-24 15:30 | XR_ITS ---
FINAL REPORT CLINICAL HISTORY: SOA COMPARISON: 01/19/2022 FINDINGS: PA and lateral views of the chest were obtained. The cardiac and mediastinal silhouettes are within normal limits. The lungs are clear. There is no pleural effusion or pneumothorax. No acute osseous abnormality is identified. IMPRESSION: No radiographic evidence of acute cardiac or pulmonary disease. Reviewed, Interpreted and Dictated by Aye Munoz MD Transcribed by Jaylin Sal Authenticated and [facility]
== END 2024-10-24 23:59 | disposition home or self-care (01) ==
LOC: RAD 15:20
PROVIDERS: PCP Family Medicine; Visit Provider Nurse Practitioner
DX: R06.02 Shortness of breath (principal); R00.2 Palpitations; R00.1 Bradycardia, unspecified; R00.0 Tachycardia, unspecified
CPT/HCPCS: 71046; 93270; 93272

== ENCOUNTER 2025-02-01 12:17 | Outpatient (CLI) | payer BC, SELFPAY ==
--- NOTE | 2025-02-01 | CA_ITS ---
APPROVED REPORT Exam: Pharmacologic Technologist: Stacie Ware Ht: 5 ft 4 in Wt: 193 lbs BSA: 1.93 m2 HR: 60 bpm BP: 101/65 mmHg Rhythm: SR/PAC 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 Cardiac Risk Factors: HTN, Smoking Stress Test Details HR Resting HR: 60 bpm Max Heart Rate (APMHR): 170 bpm Target HR (85% APMHR): 145 bpm Recovery HR: 85 bpm BP Resting BP: 101.0/65.0 mmHg Recovery BP: 123.0/63.0 mmHg ECG Resting ECG: SR/PAC Stress ECG Conclusion Switched to lexiscan due to chest tightmess. During lexiscan pt experinced no symptoms. No arrhythmias noted. Less than 1.5mm ST changes. Nondiagnostic ECG lexiscan Electronically signed by : Whit Horton MD 02/02/2025 13:28:47
--- OUTSIDE RECORDS SUMMARY | 2025-02-01 12:20 | XMS_ITS | Clinical Summary ---
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 Not on file 02/2023 Does Anyone Keep You from Co ntacting Others or Doint Things Outside the Home? Not on file 03/29/2023 Physical Sign of Abuse Present Not on file 1 Housing Stability Answer Date Recorded Current Living Arrangements Not on file 02/2023 Potentially Unsafe Housing Conditions Not on ronnie e 03/29/2023 Family and Community Support Answer Paulie e Recorded Help with Day-to-Day Activities Not on file 03/29/2023 Lonely or Isolated Not on file 03/29/2023 Employment Answer Date Recorded Do you want help finding or keeping work or a sonam b? Not on file 03/29/2023 Disabilities Answer Date Recorded Concentrating, Remembering, or Making Decisions Difficulty Not on file 03/29/2023 Doing Errands Independently Difficulty Not on fi le 03/29/2023 Education Answer Date Recorded Help with school or training? Not on file Preferred Language Not on file 03/29/2023 Comments Unknown Sex and Gender Information Value Date Recorded Sex Assigned at Not on file Legal Sex Female 11:15 AM EDT Gender Identity Not on file Sexual Orientation Not on file Plan of Treatment Health Maintenance Due Date Last Done Comments ANNUAL PHYSICAL 1974 Annual Gynecologic Pelvic and Breast Exam 1974 HEPATITIS C SCREENING 1974 TDAP/TD VACCINES (1 - Tdap) 1993 MAMMOGRAM 2014 COLOGUARD 09/15/2019 COLON CANCER SCREENING 5 YEAR SIGMOIDOSCOPY 09/15/2019 COLONOSCOPY 09/15/2019 COLORECTAL CANCER SCREENING 09/15/2019 CT COLONOGRAPHY 09/15/2019 FECAL OCCULT BLOOD TEST 09/15/2019 FIT Testing (1 year) 09/15/2019 COVID-19 Vaccine (1 - 2023- season) 2024 Pneumococcal Vaccine 50+ (1 of 1 - PCV) 2024 ZOSTER VACCINE (1 of 2) 2024 INFLUENZA VACCINE 03/21/2025 Insurance [facility] PPO 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
--- NOTE | 2025-02-01 12:30 | NM_ITS ---
APPROVED REPORT Exam: Nuclear Stress Test Indication: SOB, Family history Patient Location: Outpatient Stress Tech: Stacie GREGORY Tech:TREVOR Schuler RT(R)(N) Ht: 5 ft 4 in Wt: 193 lbs Bra Size: DD HR: 56 bpm BP: 101/65 mmHg BSA: 1.93 m2 TID: 1.29 BMI: 33.1 History: SOB, Family history Procedure: Patient received 0.4 mg of intravenous Lexiscan, resting heart rate 56 bpm, resting blood pressure 101/65 mmHg, with Lexiscan maximum heart rate achieved was 120 bpm which is % of the maximum predicted heart rate and blood pressure was 124/58 mmHg. With Lexiscan, patient denied any complaint of chest pain. Cardiac Stress and Resting SPECT Images: Cardiac Stress and Resting SPECT images were obtained using technetium 99m Myoview 31.9 mCi stress and 10.43 mCi at rest. Resting and stress imaging in supine and prone positions demonstrate no evidence of focal fixed or reversible perfusion defects. There is increase in transient ischemic dilatation ratio (TID 1.29), which may be suggestive of possible multivesel disease or balanced ischemia. Gated imaging demonstrates low-normal global LV systolic function. LVEF is calculated at 51%. Conclusion: No evidence of focal fixed or reversible perfusion defects. There is increase in transient ischemic dilatation ratio (TID 1.29), which may be suggestive of possible multivesel disease or balanced ischemia. Gated imaging demonstrates low-normal global LV systolic function. LVEF is calculated at 51%. Electronically signed by : Whit Horton MD 02/02/2025 13:08:13
--- NOTE | 2025-02-01 15:15 | CA_ITS ---
APPROVED REPORT EXAM: Comprehensive 2D, Doppler, and color-flow Echocardiogram Cancer Program Director: Mahsa Boss RVT Ht: 5 ft 4 in Wt: 193lbs BSA: 1.93 BP: 111/77 mmHg Indications: Palpitations 2D Dimensions LA Volume 46.50 mL LA Volume Index 24.09 mL/m2 (M/F) 16-34 M-Mode Dimensions RVDd 2.47 cm (0.9-2.6) LA Diam 4.02 cm (1.9-4.0) LVDd 5.26 cm (3.5-5.7) LVDs 3.58 cm (3.5-5.7) IVSd 1.07 cm (0.6-1.1) PWd 0.68 cm (0.6-1.1) EF (Teich) 59.60% FS 31.90% EDV (Teich) 133.00 mL TAPSE 2.62 (<1.7) ESV (Teich) 53.70 mL LV Diastology E Decel Time 150 (160-240 msec) E/A Ratio 0.8 Aortic Valve ANDRADE Index 1.93 cm2/m2 AoV Peak Quang. 132.0 (50-130 cm/s) AO Peak GR. 6.90 mmHg AO Mean GR. 3.80 (<5 mmHg) AO VTI 26.1 (18-25 cm) ANDRADE (VTI) 3.81 (2.5-4.5 cm2) Mitral Valve MV E Max Quang. 74.0 (40-130 cm/s) MV A Velocity 88.0 (40-130 cm/s) E/A Ratio 0.85 MV PHT 44.0 ms Pulmonary Valve PV Peak Velocity 72.0 (50-150 cm/s) Left Ventricle The left ventricle is normal size. Left ventricular systolic function is low-normal. There is normal left ventricular wall thickness. There is normal LV segmental wall motion. The left ventricular diastolic function is normal. LVEF is 50% Right Ventricle The right ventricle is normal size. The right ventricular systolic function is normal. Atria The left atrium is mildly dilated. The right atrium is mildly dilated. There is indeterminate evidence of color Doppler evidence for evaluation of interatrial shunt. Aortic Valve The aortic valve is mildly thickened. There is no hemodynamically significant aortic valvular stenosis. Trace aortic regurgitation is present. Mitral Valve The mitral valve is normal in structure. No evidence of mitral valve stenosis. Mild to moderate mitral regurgitation is present. Tricuspid Valve The tricuspid valve leaflets are thin and pliable. Trace tricuspid regurgitation. There is insufficient TR jet to estimate RVSP. Pulmonic Valve The pulmonary valve is grossly normal in structure. Trace pulmonic valve regurgitation is present. Great Vessels The aortic root is normal in size. IVC is normal in size and collapses >50% with inspiration. Pericardium There is no pericardial effusion. Other Information Study Quality: Fair Conclusion Low-normal LV systolic function (LVEF 50%). Normal RV size and function. Mild biatrial dilation. Mild to moderate MR. Indeterminate evidence of color Doppler evidence for evaluation of interatrial shunt. Further evaluation with limited TTE + agitated saline administration may be suggested, if clinically indicated and feasible. Electronically signed by : Whit Horton MD 02/02/2025 13:09:59
[2025-02-01] MEDS: SODIUM CHLORIDE 0.9% 10ML SYR (RAD ONLY) 10 ML IV ×2 (15:28)
[2025-02-01] MEDS: ISOTOPE MYOVIEW (PER STUDY) 1 DOSE IV (15:28)
== END 2025-02-01 23:59 | disposition home or self-care (01) ==
LOC: RAD 12:18
PROVIDERS: PCP Family Medicine; Visit Provider Nurse Practitioner Family
DX: I34.0 Nonrheumatic mitral (valve) insufficiency (principal); I51.7 Cardiomegaly; I49.1 Atrial premature depolarization; I49.3 Ventricular premature depolarization; R93.1 Abnormal findings on diagnostic imaging of heart and coronary circulation; R94.39 Abnormal result of other cardiovascular function study; R94.31 Abnormal electrocardiogram [ECG] [EKG]; Z82.49 Family history of ischemic heart disease and other diseases of the circulatory system
CPT/HCPCS: 78452; 93016; 93017; 93018; 93306; A9502; J2785

== ENCOUNTER 2025-02-22 11:58 | Outpatient (CLI) | payer BC, SELFPAY ==
--- OUTSIDE RECORDS SUMMARY | 2025-02-22 12:02 | XMS_ITS | Clinical Summary ---
Author Organization [facility] Address [address] [place] [phone] Care Team Providers Care Dietitian Teaching Name Role Phone Provider, No Known Primary [...] TEST 09/15/2019 FIT Testing (1 year) 09/15/2019 Pneumococcal Vaccine 50+ (1 of 1 - PCV) 2024 ZOSTER VACCINE (1 of 2) 2024 COVID-19 Vaccine (1 - season) 2025 INFLUENZA VACCINE 03/21/2025 Insurance [facility] PPO Care Teams Dietitian Teaching Relationship Specialty Start Date End Date Provider, No Known [facility] [place] [address] PCP - General 08/27/17
[2025-02-22 12:47] VITALS: BMI 30.7
[2025-02-22 12:56] VITALS: BP 106/69; PULSE 56; RESP 18; TEMP 36.1; O2SAT 100
--- NOTE | 2025-02-22 13:00 | CT_ITS ---
APPROVED REPORT Labor Expediter: CLINICAL INDICATION Chest Pain TECHNIQUE Image Acquisition: A 128 slice MDCT scanner ([employer] Endeavor Commercea View) was used for data acquisition. A noncontrast coronary calcium scan was performed. A CT attenuation threshold of 130 Hounsfield units (HU) was used for the detection of calcium in contiguous voxels of 1 sq mm in area to be counted as individual lesions. Bolus tracking in the ascending aorta with a threshold of 180 HU was performed. Immediately afterwards, ECG synchronized cardiac CT was then performed from the cardiac base to apex using retrospective gating with ECG tube current modulation. A total of 85 mL of Isovue 370 mg/mL contrast medium was administered at 5 mL/sec followed by a saline flush using a biphasic injection protocol. A tube voltage of 120 KVp was used. The patient received no medications prior to the cardiac CT. The average heart rate at the time of acquisition was 54 bpm and regular. Image Reconstruction Transaxial images were reconstructed at 0.67 mm slide thickness. Data was reviewed interactively on an advanced workstation capable of 2 and 3-dimensional displays in all conventional reconstruction formats, including multiplanar reformations, maximum intensity projections, curved multiplanar reformations, and volume rendered reconstructions. When applicable, selected routine images describing the relevant coronary anatomy and pathology were saved and sent to PACS. Complications None Technical Quality Overall image quality was fair. Coronary artery opacification was fair. Total DLP (Dose-Length Product) is 1835.4 mGy-cm. The reported value represents the total of one or more individual components during the CT acquisition of this date and at this time, and as such, the same value may appear in more than one CT report depending on the interpreting/reporting physicians. COMPARISON None FINDINGS CT Coronary Calcium Scoring LMA (Left Main Artery) = 0 LAD (Left Anterior Descending) = 0 LCX (Left Coronary Circumflex) = 0 RCA (Right Coronary Artery) = 0 Total Calcium Score = 0 using the AJ-130 method. The interpretation of the calcium heart score is based on the following continuum*: 0 = no calcified plaque detected (risk of coronary artery disease is very low ??? less than 5%) 1-10 = calcium detected in extremely minimal levels (risk of coronary diseases is still low ??? less than 10%) 11-100 = mild levels of plaque detected with certainty (mild or minimal narrowing of heart arteries is likely) 101-400 = definite,at least moderate levels of plaque detected (relatively high risk of a heart attack within 3-5 years) >401-999 = extensive levels of plaque detected (high risk of heart attack, high levels of vascular disease are present, high likelihood of at least one significant coronary narrowing) *The calcium heart score quantifies the burden of coronary calcification/plaque in the coronary arteries. The calcium heart score is not able to evaluate the presence or burden of non-calcified (i.e. soft) plaque. There is no identifiable calcification in the aortic valve, mitral annulus or mitral valve, pericardium, or myocardium. Coronary CT Angiography The coronary arterial system is right dominant. Quantitative Stenosis Grading: Left Main (LM): The left main originates normally from the left sinus of Valsalva. The LM bifurcates into the left anterior descending artery and left circumflex artery. The LM is patent with no evidence of atherosclerosis. Left Anterior Descending (LAD) and Diagonal Branches: The LAD gives off 3 diagonal branch(es). The LAD and its branches are patent with no evidence of atherosclerosis. There is no evidence of LAD-myocardial bridge. Left Circumflex (LCX) and Obtuse Marginals (OM): The LCX gives off 1 Obtuse Marginal (OM) branch(es). The LCX and its branches are patent with no evidence of atherosclerosis. Right Coronary Artery (RCA): The RCA originates normally from the right sinus of Valsalva. The RCA gives off a posterior descending artery (PDA) and posterolateral (PL) branches. The RCA and its branches are patent with no evidence of atherosclerosis. Non-Coronary Cardiac Findings: Analysis of the left ventricular (LV) structure and function was performed after 3-D reconstruction of the LV from axial images, with user-corrected automatic contouring for assessment of LV volumes and user-defined reconstruction from oblique planes for measurement of 3-D cardiac structure and function. -The left ventricle systolic function is normal. -There is no left atrial appendage filling defect. Two right pulmonary veins and two left pulmonary veins drain normally into the left atrium. -No pericardial thickening or calcification. -Central and branch pulmonary arteries in the [id number] are unremarkable. -Thoracic aorta within the visualized thoracic aortic-branches in the [id number] is unremarkable. Extracardiac Structures No significant extra-cardiac findings. Note, however, that this study is focused on the cardiac findings. IMPRESSION -Fair image quality, presence of motion and blurring artifact. This may affect the diagnostic interpretation of the study findings. -Absence of coronary calcification with an Agatston score = 0 using the AJ-130 method. -No obvious evidence of significant flow-limiting atherosclerosis of the coronary arteries. -CAD-RADS 0. Management recommendations per ACC/AHA guidelines*, as clinically appropriate. *Recommendations: CAD RADS 0: Reassurance. Consider non-atherosclerotic causes of chest pain. CAD RADS 1: Consider non-atherosclerotic causes of chest pain. Consider preventive therapy and risk factor modification. CAD RADS 2: Consider non-atherosclerotic causes of chest pain. Consider preventive therapy and risk factor modification, particularly for patients with nonobstructive plaque in multiple segments. CAD RADS 3: Consider further functional testing. Consider symptom-guided anti-ischemic and preventive pharmacotherapy as well as risk factor modification per published guideline statements. CAD RADS 4A: Consider further functional testing or invasive coronary angiography with revascularization per published guideline statements. Consider symptom-guided anti-ischemic and preventive pharmacotherapy as well as risk factor modification per published guideline statements. CAD RADS 4B: Invasive coronary angiography recommended with revascularization per published guideline statements. Consider symptom-guided anti-ischemic and preventive pharmacotherapy as well as risk factor modification per published guideline statements. CAD RADS 5: Consider invasive angiography and/or viability assessment with revascularization per published guideline statements. Consider symptom-guided anti-ischemic and preventive pharmacotherapy as well as risk factor modification per published guideline statements. CRITICAL RESULT None COMMUNICATION Per this written report The coronary and cardiac findings of this CCTA were reviewed, reported, and signed by Tres Horton MD (Marine Habitat Resource Specialist) Conclusion Electronically signed by : Whit Horton MD 02/23/2025 23:42:47
[2025-02-22 13:32] LABS: Chloride 105 mmol/L (98-107)
[2025-02-22 13:33] LABS: Potassium 3.7 mmoL/L (3.5-5.1); Sodium 139 mmol/L (136-145)
[2025-02-22 13:36] LABS: Anion Gap 11.7 mEq/L (5-15); Blood Urea Nitrogen 14 mg/dl (7-17); Calcium 9.8 mg/dl (8.4-10.2); Carbon Dioxide 26 mmol/L (22.0-30.0); Creatinine Clearance Estimated 153 mL/min (50-200); Creatinine,Serum 0.60 mg/dl (0.52-1.04); Estimated Glomerular Filt Rate 106 ml/min (>60); GFR (African American) 128 ML/MIN (>60); Glucose 90 mg/dl (74-100)
--- NOTE | 2025-02-22 13:45 | CA_ITS ---
APPROVED REPORT EXAM: Comprehensive 2D, Doppler, and color-flow Echocardiogram Flight Controls Engineer: Yolette Boyd RDCS Ht: 5 ft 4 in Wt: 194lbs BSA: 1.93 BP: 119/72 mmHg Indications: bubble study Other Information Study Quality: Adequate Conclusion This is a limited TTE to evaluate for presence of interatrial shunt. Agitated saline administration is performed at rest, as well as with sniff and Valsalva maneuvers. Agitated saline administration demonstrates no evidence of interatrial shunt. Electronically signed by : Whit Horton MD 02/23/2025 17:54:45
[2025-02-22 13:49] VITALS: BP 106/69; PULSE 63; RESP 18; TEMP 36.1; O2SAT 100
[2025-02-22 13:52] VITALS: BP 113/54; PULSE 61; RESP 18; O2SAT 100
[2025-02-22 13:57] VITALS: BP 104/59; PULSE 54; RESP 18; O2SAT 100
[2025-02-22] MEDS: SODIUM CHLORIDE 0.9% 10ML SYR (RAD ONLY) 10 ML IV (14:02)
[2025-02-22] MEDS: 0.9 % SODIUM CHLORIDE 50 ML VIAL IV (14:02)
[2025-02-22] MEDS: IOPAMIDOL-370 (76%);100ML BOTTLE 85 ML IV (14:02)
== END 2025-02-22 14:07 | disposition home or self-care (01) ==
LOC: RAD 11:59
PROVIDERS: PCP Family Medicine; Visit Provider Nurse Practitioner Family
DX: I51.7 Cardiomegaly (principal); R94.39 Abnormal result of other cardiovascular function study; R94.31 Abnormal electrocardiogram [ECG] [EKG]
CPT/HCPCS: 75574; 80048; 93308; Q9967